=== PATIENT | female | born 1955 | race Caucasian/White ===

== ENCOUNTER 2017-02-12 22:16 | Emergency (ER) | payer MEDICARE, OTHER ==
[~2017-02-12] VITALS: Ht 162.6 cm; Wt 105.5 kg
[2017-02-12 22:16] VITALS: Ht 162.6 cm; Wt 105.5 kg
--- OUTSIDE RECORDS SUMMARY | 2017-02-12 22:19 | XMS REPORT | Referral Summary ---
Author Author [facility] Organization [facility] Address Unknown Phone Unavailable Care Team Providers Care Utility Clerk Name Role Phone Dian Cardenas Primary Care Physician [phone] Encounter [facility] [id number] Date(s): 12/21/15 - 12/21/15 [facility]ON[facility] Whittaker E [address] [address]- Discharge Diagnosis: Diabetes Discharge Diagnosis: Left knee pain Discharge Diagnosis: Cough Discharge Disposition: 01-Home or Self Care Attending Physician: Wong Cardenas MD Admitting Physician: Wong Cardenas MD Vital Signs Most recent to 1 oldest [Reference Range]: Peripheral Pulse 98 bpm Rate [60-100 bpm] (12/21/15 10:02 AM) Blood Pressure 140/62 mmHg [90-140/60-90 mmHg] (12/21/15 10:02 AM) SpO2 93 % (12/21/15 10:02 AM) Problem List Condition Effective Dates Status Health Status Informant Alcohol abuse Active (disorder)(Confirmed ) Asthma without Active status asthmaticus (disorder)(Confirmed ) Cellulitis and Active abscess of toe(Confirmed) Depressive Active disorder(Confirmed) Fibromyalgia(Confirm Active ed) Ingrown Active toenail(Confirmed) Nondependent tobacco Active use disorder(Confirmed) Obesity(Confirmed) Active patient dermatophytosis of Active nail(Confirmed) Pain in Active limb(Confirmed) Restless legs Active syndrome(Confirmed) Allergies, Adverse Reactions, Alerts Substance Reaction Severity Status amoxicillin Hives Active amoxicillin-clavulanate Hives Active bacitracin Active penicillin Rash Active polymyxin B sulfate Active Medications Abilify 5 mg oral tablet 1 tabs, Oral, Daily, 0 Refill(s) Start Date: 04/18/14 Status: Ordered Advair Diskus 250 mcg-50 mcg inhalation powder See Instructions, 1 INHALATION Q 12 HOURS, # 60 Each, 5 Refill(s), Pharmacy: [facility] [id number] Start Date: 12/01/15 Status: Ordered albuterol CFC free 90 mcg/inh inhalation aerosol 2 puffs, Inhalation, q4hr, # 1 Each, 0 Refill(s), other reason (Rx) Start Date: 06/15/15 Status: Ordered Bactrim DS 800 mg-160 mg oral tablet 1 tabs, Oral, BID, X 10 days, # 20 tabs, 0 Refill(s), Pharmacy: [facility] [id number] Start Date: 12/21/15 Stop Date: 12/31/15 Status: Ordered Bactroban 2% topical ointment rudy, Topical, BID, 0 Refill(s) Start Date: 04/18/14 Status: Ordered bd pen ndl shrt 31 G X 8mm (03/11) bharati bd pen ndl shrt 31 G X 8mm (03/11) bharati, See Instructions, SubCutaneous QID, # 100 Each, 3 Refill(s), Pharmacy: [facility] [id number], SubCutaneous QID Start Date: 07/07/14 Status: Ordered clonazePAM 0.5 mg oral tablet 0.5 tabs, 2 tabs, Oral, Bedtime (once a day), 0 Refill(s) Start Date: 04/18/14 Status: Ordered Cymbalta 60 mg oral delayed release capsule 2 caps, Oral, Bedtime (once a day), do not crush or chew, # 30 caps, 0 Refill(s) Start Date: 04/18/14 Status: Ordered fluticasone 50 mcg/inh nasal spray See Instructions, INHALE 1 - 2 SPRAY BY INTRANASAL ROUTE EVERY DAY IN EACH NOSTRIL, # 3 Each, 5 Refill(s), Pharmacy: [facility] [id number] Start Date: 11/06/15 Status: Ordered FreeStyle Lancets See Instructions, USE 1 BY SUBCUTANEOUS ROUTE 3 TIMES EVERY, # 300 unknown unit , 11 Refill(s), eRx: [facility] [id number], USE 1 BY SUBCUTANEOUS ROUTE 3 TIMES EVERY Start Date: 01/16/15 Status: Ordered FreeStyle Lite Strips See Instructions, INJECT 1 BY INTRADERMAL ROUTE 3 TIMES EVERY DAY, # 300 unknown unit, 11 Refill(s), eRx: [facility] , INJECT 1 BY INTRADERMAL ROUTE 3 TIMES EVERY DAY Start Date: 04/24/15 Status: Ordered FreeStyle Lite Strips See Instructions, INJECT 1 BY INTRADERMAL ROUTE 3 TIMES EVERY DAY, # 300 unknown unit, 11 Refill(s), eRx: [facility] , INJECT 1 BY INTRADERMAL ROUTE 3 TIMES EVERY DAY Start Date: 01/16/15 Status: Ordered Lantus Solostar Pen 100 units/mL subcutaneous solution See Instructions, INJECT 30 UNITS BY SUBCUTANEOUS ROUTE AT BEDTIME, # 15 unknown unit, 10 Refill(s), eRx: [facility] , INJECT 30 UNITS BY SUBCUTANEOUS ROUTE AT BEDTIME Start Date: 05/25/15 Status: Ordered Miscellaneous DME DME Item b-d jorge luis pen needles dx 250.00, See Instructions, # 100 Each, 12 Refill(s), Pharmacy: [facility] [id number], b-d jorge luis pen needles; dx 250.00 , Supply Start Date: 05/18/15 Status: Ordered Mobic 15 mg oral tablet See Instructions, TAKE 1 TABLET (15MG) BY ORAL ROUTE BID, # 60 unknown unit, 11 Refill(s), eRx: [facility] , TAKE 1 TABLET (15MG) BY ORAL ROUTE BID Start Date: 01/12/15 Status: Ordered [place] 7.5 mg-325 mg oral tablet See Instructions, 1-2 tabs Oral q4hr, # 70 tabs, 0 Refill(s), Indication: prn pain Start Date: 12/01/15 Status: Ordered NovoLOG FlexPen 100 units/mL subcutaneous solution See Instructions, TAKE 25 U ; BEFORE BREAKFAST, 12-15 U ; BEFORE LUNCH, AND 20 U ; BEFORE DINNER, # 15 mL, 9 Refill(s), Pharmacy: [facility] [id number], TAKE 25 U ; BEFORE BREAKFAST, 12-15 U ; BEFORE LUNCH, AND 20 U ; BEFORE DINNER Start Date: 11/30/15 Status: Ordered ProAir HFA 90 mcg/inh inhalation aerosol See Instructions, INHALE 2 PUFF(S) BY MOUTH ROUTE 4 TIMES EVERY DAY AND NEEDED, # 8.5 Each, 2 Refill(s), Pharmacy: [facility] [id number] Start Date: 08/24/15 Status: Ordered promethazine-codeine 6.25 mg-10 mg/5 mL oral syrup See Instructions, 1 Teaspoon Oral in evening as needed for cough, # 120 mL, 0 Refill(s), called to pharmacy (Rx) Start Date: 08/25/15 Status: Ordered tiZANidine 4 mg oral tablet 1 tabs, Oral, TID, 0 Refill(s) Start Date: 04/18/14 Status: Ordered traMADol 50 mg oral tablet 50 mg 1 tabs, Oral, QID, prn pain, # 100 tabs, 2 Refill(s), called to pharmacy ( Rx) Start Date: 10/02/15 Status: Ordered zaleplon 10 mg oral capsule 1 caps, Oral, Bedtime (once a day), as needed for sleep, 0 Refill(s) Start Date: 04/18/14 Status: Ordered Zocor 20 mg oral tablet See Instructions, TAKE 1 TABLET (20MG) BY ORAL ROUTE EVERY DAY IN THE EVENING, # 30 Each, 6 Refill(s), Pharmacy: [facility] [id number], TAKE 1 TABLET ( 20MG) BY ORAL ROUTE EVERY DAY IN THE EVENING Start Date: 11/29/15 Status: Ordered Results Chemistry Most recent to 1 oldest [Reference Range]: Sodium Lvl [135-144 139 mEq/L mEq/L] (12/21/15 10:40 AM) Potassium Lvl 4.3 mEq/L [3.5-5.2 mEq/L] (12/21/15 10:40 AM) Chloride [99-111 104 mEq/L mEq/L] (12/21/15 10:40 AM) CO2 [22-31 mEq/L] 30 mEq/L (12/21/15 10:40 AM) AGAP [3-20] 5 (12/21/15 10:40 AM) BUN [10-20 mg/dL] 15 mg/dL (12/21/15 10:40 AM) Glucose Lvl [70-99 236 mg/dL mg/dL] *HI* (12/21/15 10:40 AM) Creatinine Lvl 0.72 mg/dL [0.57-1.11 mg/dL] (12/21/15 10:40 AM) eGFR [>60 mL/min] >60 mL/min 1 (12/21/15 10:40 AM) Calcium Lvl 9.3 mg/dL [8.9-10.5 mg/dL] (12/21/15 10:40 AM) Albumin Lvl [3.4-4.8 4.0 gm/dL gm/dL] (12/21/15 10:40 AM) Total Protein 6.0 gm/dL [6.2-8.1 gm/dL] *LOW* (12/21/15 10:40 AM) Globulin [1.8-4.0 2.0 gm/dL gm/dL] (12/21/15 10:40 AM) ALT [0-55 U/L] 12 U/L (12/21/15 10:40 AM) AST [5-34 U/L] 11 U/L (12/21/15 10:40 AM) Alk Phos [40-150 47 U/L U/L] (12/21/15 10:40 AM) Bili Total [0.2-1.2 0.3 mg/dL mg/dL] (12/21/15 10:40 AM) Hgb A1c [4.1-5.6 %] 6.1 % *HI* (12/21/15 10:40 AM) eAvg Glucose 128.4 mg/dL (12/21/15 10:40 AM) 1Result Comment: Multiply eGFR results by 1.21 for race. Urinalysis Most recent to 1 oldest [Reference Range]: UA Color Yellow (12/21/15 10:40 AM) UA Appear Clear (12/21/15 10:40 AM) UA pH [5.0-8.0] 6.5 (12/21/15 10:40 AM) UA Leuk Est Pos 1+ [Negative] *ABN* (12/21/15 10:40 AM) UA Nitrite Negative [Negative] (12/21/15 10:40 AM) UA Protein Negative [Negative] (12/21/15 10:40 AM) UA Glucose Pos 2+ [Negative] *ABN* (12/21/15 10:40 AM) UA Ketones Negative [Negative] (12/21/15 10:40 AM) UA Urobilinogen 0.2 mg/dL [<1.0 mg/dL] (12/21/15 10:40 AM) UA Bili [Negative] Negative (12/21/15 10:40 AM) UA Blood [Negative] Negative (12/21/15 10:40 AM) UA Spec Grav 1.020 [1.003-1.030] (12/21/15 10:40 AM) Type Clean Catch (12/21/15 10:40 AM) UA WBC [0-4] 2-4 (12/21/15 10:40 AM) UA RBC [0-4] 0-4 (12/21/15 10:40 AM) Epithelial Cells 2-5 (12/21/15 10:40 AM) Immunizations Vaccine Date Refusal Reason tetanus/diphth/pertuss (Tdap) adult/adol 01/12/97 influenza virus vaccine, live 09/06/08 Procedures Procedure Date Related Diagnosis Body Site section Tonsillectomy Social History Social History Type Response Smoking Status Current some day smoker; Type: Cigarettes; Tobacco use per day: More than 1 pack; Number of years: 20 Assessment and Plan Extracted from: Title: Ambulatory Patient Education Author: Wong Cardenas MD Date: Allergy Cough, Adult A cough is a reflex. It helps you clear your throat and airways. A cough can help heal your body. A cough can last 2 or 3 weeks (acute) or may last more than 8 weeks (chronic). Some common causes of a cough can include an infection, allergy, or a cold. HOME CARE Only take medicine as told by your doctor. If given, take your medicines (antibiotics) as told. Finish them even if you start to feel better. Use a cold steam vaporizer or humidifier in your home. This can help loosen thick spit (secretions). Sleep so you are almost sitting up (semi-upright). Use pillows to do this. This helps reduce coughing. Rest as needed. Stop smoking if you smoke. GET HELP RIGHT AWAY IF: You have yellowish-white fluid (pus) in your thick spit. Your cough gets worse. Your medicine does not reduce coughing, and you are losing sleep. You cough up blood. You have trouble breathing. Your pain gets worse and medicine does not help. You have a fever. MAKE SURE YOU: Understand these instructions. Will watch your condition. Will get help right away if you are not doing well or get worse. This information is not intended to replace advice given to you by your health care provider. Make sure you discuss any questions you have with your health care provider. Document Released: 06/25/2012 Document Revised: 02/27/2015 Document Reviewed: [facility] Patient Information 2015 [employer]. Family Medicine Knee Pain Knee pain is a common problem. It can have many causes. The pain often goes away by following your doctor's home care instructions. Treatment for ongoing pain will depend on the cause of your pain. If your knee pain continues, more tests may be needed to diagnose your condition. Tests may include X-rays or other imaging studies of your knee. HOME CARE Take medicines only as told by your doctor. Rest your knee and keep it raised (elevated) while you are resting. Do not do things that cause pain or make your pain worse. Avoid activities where both feet leave the ground at the same time, such as running, jumping rope, or doing jumping jacks. Apply ice to the knee area: Put ice in a plastic bag. Place a towel between your skin and the bag. Leave the ice on for 20 minutes, 23 times a day. Ask your doctor if you should wear an elastic knee support. Sleep with a pillow under your knee. Lose weight if you are overweight. Being overweight can make your knee hurt more. Do not use any tobacco products, including cigarettes, chewing tobacco, or electronic cigarettes. If you need help quitting, ask your doctor. Smoking may slow the healing of any bone and joint problems that you may have. GET HELP IF: Your knee pain does not stop, it changes, or it gets worse. You have a fever along with knee pain. Your knee gives out or locks up. Your knee becomes more swollen. GET HELP RIGHT AWAY IF: Your knee feels hot to the touch. You have chest pain or trouble breathing. This information is not intended to replace advice given to you by your health care provider. Make sure you discuss any questions you have with your health care provider. Document Released: 01/09/2010 Document Revised: 08/01/2015 Document Reviewed: [facility] Patient Information 2015 [employer]. No follow up information was provided. Extracted from: Title: Office Visit Note Author: Wong Cardenas MD Date: 12/21/15 Assessment/Plan 1.Left knee pain left MCL sprain will rest and use walker may need brace infuture Ordered: XR Knee 1 or 2 Views Left 2.Cough we will treat with Bactrim DS she will follow up if symptoms persists Ordered: XR Chest 2 Views 3.Diabetes will check status Ordered: Albumin Level Urine Comprehensive Metabolic Panel Hemoglobin A1c Urinalysis Microscopic Urine Dipstick Orders: sulfamethoxazole-trimethoprim, 1 tabs, Oral, BID, X 10 days, # 20 tabs , 0 Refill(s), Pharmacy: [facility] [id number]
--- OUTSIDE RECORDS SUMMARY | 2017-02-12 22:20 | XMS REPORT | Continuity of Care Document ---
Author Author Obdulio Diane DPM, VC Ambulatory Address [address] [place] [address] Phone Care Team Providers Care Stone Paver Name Role Phone Wong Cardenas PP Unavailable Payers Payer name Insurance type Covered green party ID Authorization(s) Unknown Problems Condition Effective Dates (start - stop) Clinical Status Dermatophytosis of nail - *Chronic Pain in limb - *Chronic Unspecified cellulitis and abscess of toe - *Chronic Dermatophytosis of nail - *Chronic Pain in joint involving ankle and foot - *Acute Bronchitis, not specified as acute or chronic - *Acute ACUTE BRONCHOSPASM - *Acute Unspecified cellulitis and abscess of toe - *Acute Ulcer of other part of foot - *Chronic Other hammer toe (acquired) - *Chronic Diabetes Mellitus Type 2, Uncomplicated - *Fair Control Ingrowing nail - *Acute Otalgia, unspecified - *Acute Lumbago - *Acute Radiculitis, Thoracic or Lumbar - *Acute Earache symptoms - *Chronic Lumbago - *Acute Unspecified local infection of skin and subcutaneous tissue - * Acute Ulcer of other part of foot - *Chronic Diabetes Mellitus Type 2, Uncomplicated - *Fair Control Dermatophytosis of nail - *Chronic Pain in limb - *Chronic Dermatophytosis of nail - *Chronic Pain in limb - *Chronic Mouth sores - *Acute Other and unspecified diseases of the oral soft tissues - *Acute Dermatophytosis of nail - *Chronic Pain in limb - *Chronic Ulcer of other part of foot - *Chronic Other hammer toe (acquired) - *Chronic Diabetes Mellitus Type 2, Uncomplicated - *Fair Control Diabetes mellitus without mention of complication, type II or unspecified type , not stated as uncontrolled - *Chronic Diabetes Mellitus Type 2, Uncomplicated - *Chronic Cervicalgia - *Acute Pain in thoracic spine - *Acute Pain in joint involving pelvic region and thigh - *Acute Depressive disorder, not elsewhere classified - *Chronic Nondependent alcohol abuse, unspecified drinking behavior - * Chronic Nondependent tobacco use disorder - *Chronic ASTHMA,UNSPECIFIED TYPE, UNSPECIFIED - *Chronic Pain in limb - *Chronic Bronchitis, Acute - *Acute ACUTE BRONCHOSPASM - *Acute Dermatophytosis of nail - *Chronic Pain in limb - *Chronic Diabetes mellitus without mention of complication, type II or unspecified type , not stated as uncontrolled - *Chronic Dermatophytosis of nail - *Chronic Pain in limb - *Chronic Diabetes Mellitus Type 2, Uncomplicated - *Fair Control DERMATOPHYTOSIS OF NAIL - CELLULITIS, TOE NOS - INGROWING NAIL - PAIN IN LIMB - Diabetes mellitus without mention of complication, type I [juvenile type], not stated as uncontrolled - *Chronic Diabetes mellitus without mention of complication, type I [juvenile type], not stated as uncontrolled - *Chronic Ingrowing nail - *Chronic Ulcer of other part of foot - *Acute Other hammer toe (acquired) - *Chronic Lumbago - *Acute Pain in joint involving multiple sites - *Acute Upper Respiratory Infection, Acute - *Acute Chilblains - *Acute Diabetes mellitus without mention of complication, type I [juvenile type], not stated as uncontrolled - *Chronic Diabetes mellitus without mention of complication, type II or unspecified type - *Chronic Diabetes mellitus without mention of complication, type II or unspecified type - *Chronic Diabetes mellitus without mention of complication, type II or unspecified type - *Chronic Diabetes mellitus without mention of complication, type II or unspecified type - *Chronic Abnormal weight gain - *Acute Diabetes mellitus without mention of complication, type II or unspecified type , not stated as uncontrolled - *Chronic Screening for malignant neoplasms of the cervix - *Routine Dermatophytosis of nail - *Chronic Pain in limb - *Chronic Diabetes Mellitus Type 2, Uncomplicated - *Fair Control Diabetes mellitus without mention of complication, type II or unspecified type , not stated as uncontrolled - *Chronic Bronchitis, Acute - *Acute Diabetes Mellitus Type 2, Uncomplicated - *Chronic Diabetes mellitus without mention of complication, type II or unspecified type , uncontrolled - *Chronic Lumbago - *Acute Pain in joint involving forearm - *Acute Oral aphthae - *Acute Obesity, unspecified - *Acute Family History Family Member Diagnosis Age At Onset Status Family h/o (Unknown) Diabetes Yes Social History Social History Element Description Quantity alcohol Allergies, Adverse Reactions, Alerts Substance Reaction Severity Status PENICILLINS Rash Unknown BACITRACIN Unknown BACITRACIN ZINC Unknown GRAMICIDIN D Unknown NEOMYCIN SULFATE Unknown POLYMYXIN B Unknown POLYMYXIN B SULFATE Unknown AMOXICILLIN TRIHYDRATE Hives Unknown POTASSIUM CLAVULANATE Hives Unknown Medications Medication Instructions Dosage Effective Dates (start - stop) Status minocycline 100 mg capsule take 1 capsule (100MG) by oral route every day as needed 100 MG - Active Cymbalta 60 mg capsule,delayed release take 2 capsule (120MG) by ORAL route every bedtime 120 MG - Active Abilify 5 mg tablet take 1 tablet (5MG) by ORAL route every day 5 MG - Active trazodone 100 mg tablet take 3 tablet (300MG) by ORAL route every bedtime after meals. 300 MG - Active zaleplon 10 mg capsule take 1 capsule (10MG) by oral route every day at bedtime as needed - Active Lantus Solostar 100 unit/mL (3 mL) subcutaneous insulin pen inject by subcutaneous route as per insulin protocol 0 - Active use with insulin pen 4 times daily - Active clonazepam 0.5 mg tablet take 2 Tablet (1MG) by oral route every bedtime 1 MG - Active fluticasone 50 mcg/actuation nasal spray,suspension inhale 1 - 2 spray by Intranasal route every day in each nostril - Active ProAir HFA 90 mcg/actuation aerosol inhaler inhale 2 Puff(s) by mouth route 4 times every day and as needed 0 - Active Mobic 15 mg tablet take 1 tablet (15MG) by ORAL route BID - Active tizanidine 4 mg tablet take 1 tablet (4MG) by oral route 3 times every day 4 MG - Active Bactroban 2 % topical cream apply a small amount to the affected area BID - Active Zocor 20 mg tablet take 1 tablet (20MG) by ORAL route every day in the evening - Active Novolog Flexpen 100 unit/mL subcutaneous inject by subcutaneous route as per insulin sliding scale protocol 0 - Active FreeStyle Lancets 28 gauge Use 1 by Subcutaneous route 3 times every - Active FreeStyle Lite Strips use 1 TID as directed - Active promethazine-codeine 6.25 mg-10 mg/5 mL syrup take 1 Teaspoon at hs prn cough - Active Advair Diskus 250 mcg-50 mcg/dose powder for inhalation 1 INHALATION q 12 hours - Active [place] 7.5 mg-325 mg tablet take 1 - 2 Tablet by oral route every 4 hours as needed for pain 0 - Active Immunizations Vaccine Date Status Comments flu (split) (3 yrs or older) completed - Completed reason: Previously given Tdap completed - Completed reason: Previously Given Results Test Name Date and Time Measure Units Reference Range Abnormal Flag Comments Unknown Vital Signs Date / Time: Height Weight Pulse Rate Blood Pressure Temperature Unknown Procedures Procedure Date Unknown Encounters Encounter Location Date Patient Visit [facility] [place] Patient [place] [facility] [place] Patient Visit [facility] [place] [facility] [place] [facility] [place] [facility] [place] [facility] [place] Patient [facility] [place] [facility] [place] [facility] [place] [facility] [place] [facility] [place] [facility] [place] [facility] [place] [facility] [place] [facility] [place] [facility] [place] [facility] [place] [facility] [place] Patient Visit [facility] [place] Patient [facility] [place] [facility] [place] [facility] [place] [facility] [place] Patient Visit [facility] [place] Patient [facility] [place] Patient [facility] [place] [facility] [place] Patient [facility] [place] [facility] [place] [facility] [place] [facility] [place] [facility] [place] [facility] [place] Patient [facility] [place] [facility] [place] Patient Visit [place] Patient [facility] [place] [facility] [place] [facility] [place] Patient [facility] [place] [facility] [place] [facility] [place] [facility] [place] [facility] [place] [facility] [place] [facility] [place] Patient [facility] [place] [facility] [place] [facility] [place] [facility] [place] [facility] [place] [facility] [place] [facility] [place] Patient Visit [facility] [place] Patient Visit [facility] [place] Advance Directives Directive Effective [facility] Unknown
--- OUTSIDE RECORDS SUMMARY | 2017-02-12 22:20 | XMS REPORT | Referral Summary ---
Author Author [facility] Organization [facility] Address Unknown Phone Unavailable Care Team Providers Care Veneer Drier Tailer Name Role Phone Dian Cardenas Primary Care Physician [phone] Encounter VC Date(s): 06/19/16 - 06/19/16 [facility] [address] [place] [id number] Discharge Disposition: 01-Home or Self Care Attending Physician: Wong Cardenas MD Admitting Physician: Wong Cardenas MD Vital Signs Most recent to 1 oldest [Reference Range]: Peripheral Pulse 90 bpm Rate [60-100 bpm] (06/19/16 4:33 PM) Blood Pressure 138/70 mmHg [90-140/60-90 mmHg] (06/19/16 4:33 PM) SpO2 91 % (06/19/16 4:33 PM) Problem List Condition Effective Dates Status Health Status Informant Alcohol abuse Active (disorder)(Confirmed ) Asthma without Active status asthmaticus (disorder)(Confirmed ) Cellulitis and Active abscess of toe(Confirmed) Chronic low back Active pain(Confirmed) Depressive Active disorder(Confirmed) Fibromyalgia(Confirm Active ed) Ingrown [...] HOURS, # 60 Each, 5 Refill(s), Pharmacy: [facility] [id number] Start Date: 12/01/15 Status: Ordered albuterol 0.63 mg/3 mL (0.021%) inhalation solution 0.63 mg 3 mL, NEB, TID, j 18.9, # 270 mL, 11 Refill(s), Pharmacy: [facility] [id number] Start Date: 01/19/16 Status: Ordered Bactroban 2% topical ointment rudy, Topical, BID, 0 Refill(s) Start Date: 04/18/14 Status: Ordered clonazePAM 0.5 mg oral tablet 0.5 tabs, 2 tabs, Oral, Bedtime (once a day), 0 Refill(s) Start Date: 04/18/14 Status: Ordered clotrimazole-betamethasone 1%-0.05% topical cream See Instructions, APPLY TOPICALLY TO AFFECTED SKIN TWICE DAILY, # 45 g, eRx: [facility] [id number], APPLY TOPICALLY TO AFFECTED SKIN TWICE DAILY Start Date: 06/03/16 Status: Ordered Cymbalta 60 mg oral delayed release capsule 2 caps, Oral, Bedtime (once a day), do not crush or chew, # 30 caps, 0 Refill(s) Start Date: 04/18/14 Status: Ordered fluticasone 50 mcg/inh nasal spray See Instructions, INHALE 1 - 2 SPRAY BY INTRANASAL ROUTE EVERY DAY IN EACH NOSTRIL, # 3 Each, 5 Refill(s), Pharmacy: [facility] [id number] Start Date: 11/06/15 Status: Ordered FREESTYLE LANCETS 100'S See Instructions, TEST BLOOD SUGARS THREE TIMES DAILY, # 300 unknown unit, eRx: [facility] [id number], TEST BLOOD SUGARS THREE TIMES DAILY Start Date: 04/24/16 Status: Ordered Glucometer Lancets (DME) DME Item freestyle lancets test tid, See Instructions, # 300 Each, 0 Refill(s), Pharmacy: [facility] [id number], freestyle lancets test tid, Supply Start Date: 01/24/16 Status: Ordered Lantus Solostar Pen 100 units/mL subcutaneous solution See Instructions, INJECT 30 UNITS BY SUBCUTANEOUS ROUTE AT BEDTIME, # 15 unknown unit, 10 Refill(s), eRx: [facility] [id number], INJECT 30 UNITS BY SUBCUTANEOUS ROUTE AT BEDTIME Start Date: 05/25/15 Status: Ordered Levaquin 500 mg oral tablet 500 mg 1 tabs, Oral, q24hr, X 10 days, # 10 tabs, 0 Refill(s), Pharmacy: [facility] [id number], 1 tabs Oral q24hr,x10 days Start Date: 06/19/16 Stop Date: 06/29/16 Status: Ordered Miscellaneous DME DME Item b-d jorge luis pen needles dx 250.00, See Instructions, # 100 Each, 12 Refill(s), Pharmacy: [facility] [id number], b-d jorge luis pen needles; dx 250.00 , Supply Start Date: 05/18/15 Status: Ordered Mobic 15 mg oral tablet See Instructions, TAKE 1 TABLET (15MG) BY ORAL ROUTE BID, # 60 tabs, 5 Refill(s) , Pharmacy: [facility] [id number], TAKE 1 TABLET (15MG) BY ORAL ROUTE BID Start Date: 01/18/16 Status: Ordered [place] 7.5 mg-325 mg oral tablet 1 tabs, Oral, QID, as needed for pain, # 120 tabs, 0 Refill(s), Indication: prn pain Start Date: 06/19/16 Status: Ordered NovoLOG FlexPen 100 units/mL subcutaneous solution See Instructions, TAKE 25 U ; BEFORE BREAKFAST, 12-15 U ; BEFORE LUNCH, AND 20 U ; BEFORE DINNER, # 15 mL, 9 Refill(s), Pharmacy: [facility] [id number], TAKE 25 U ; BEFORE BREAKFAST, 12-15 U ; BEFORE LUNCH, AND 20 U ; BEFORE DINNER Start Date: 11/30/15 Status: Ordered ProAir HFA 90 mcg/inh inhalation aerosol See Instructions, INHALE 2 PUFF(S) BY MOUTH ROUTE 4 TIMES EVERY DAY AND NEEDED, # 8.5 Each, 2 Refill(s), Pharmacy: [facility] [id number] Start Date: 08/24/15 Status: Ordered Spiriva 18 mcg inhalation capsule 18 mcg 1 caps, Inhalation, Daily, # 30 Each, 3 Refill(s), Pharmacy: [facility] [id number], 1 caps Inhalation Daily Start Date: 04/11/16 Status: Ordered testing strips testing strips, See Instructions, Freestyle insulin X testing strips testing three times a day Dx E 11.9, # 100 Each, 11 Refill(s), Pharmacy: [facility] [address], Freestyle insulin X testing strips testing three times a day ; Dx E 11.9 Start Date: 04/16/16 Status: Ordered traMADol 50 mg oral tablet 50 mg 1 tabs, Oral, TID, prn pain, # 90 tabs, 0 Refill(s) Start Date: 05/27/16 Status: Ordered Zocor 20 mg oral tablet See Instructions, TAKE 1 TABLET (20MG) BY ORAL ROUTE EVERY DAY IN THE EVENING, # 30 Each, 6 Refill(s), Pharmacy: [facility] [id number], TAKE 1 TABLET ( 20MG) BY ORAL ROUTE EVERY DAY IN THE EVENING Start Date: 11/29/15 Status: Ordered Results No data available for this section Immunizations Vaccine Date Refusal Reason tetanus/diphth/pertuss (Tdap) adult/adol 01/12/97 influenza virus vaccine, live 09/06/08 Procedures Procedure Date Related Diagnosis Body Site section Tonsillectomy Social History Social History Type Response Smoking Status Current every day smoker; Type: Cigarettes; Tobacco use per day: 1 pack or more Assessment and Plan Extracted from: Title: Ambulatory Patient Education Author: Sravani Tellez Date: 06/19/16 Family Medicine Arthritis, Nonspecific Arthritis is pain, redness, warmth, or puffiness (inflammation) of a joint. The joint may be stiff or hurt when you move it. One or more joints may be affected. There are many types of arthritis. Your doctor may not know what type you have right away. The most common cause of arthritis is wear and tear on the joint (osteoarthritis). HOME CARE Only take medicine as told by your doctor. Rest the joint as much as possible. Raise (elevate) your joint if it is puffy. Use crutches if the painful joint is in your leg. Drink enough fluids to keep your pee (urine) clear or pale yellow. Follow your doctor's diet instructions. Use cold packs for very bad joint pain for 10 to 15 minutes every hour. Ask your doctor if it is okay for you to use hot packs. Exercise as told by your doctor. Take a warm shower if you have stiffness in the morning. Move your sore joints throughout the day. GET HELP RIGHT AWAY IF: You have a fever. You have very bad joint pain, puffiness, or redness. You have many joints that are painful and puffy. You are not getting better with treatment. You have very bad back pain or leg weakness. You cannot control when you poop (bowel movement) or pee (urinate). You do not feel better in 24 hours or are getting worse. You are having side effects from your medicine. MAKE SURE YOU: Understand these instructions. Will watch your condition. Will get help right away if you are not doing well or get worse. This information is not intended to replace advice given to you by your health care provider. Make sure you discuss any questions you have with your health care provider. Document Released: 01/07/2011 Document Revised: 04/13/2013 Document Reviewed: [facility] Patient Information 2016 [employer]. No follow up information was provided. Extracted from: Title: COPD * Author: Wong Cardenas MD Date: 06/19/16 Impression and Plan Diagnosis Chronic obstructive pulmonary disease (COPD) (PKF42-JA J44.9, Working, Medical). Chronic low back pain (AFL76-QI M54.5, Working, Medical). Shoulder pain, bilateral (MGW22-EC M25.511, Working, Medical). Patient Instructions: Arthritis, Nonspecific, Phri-em-Rcfd. Summary: Will cover pt's lungs with Levaquin 500 mg. q d X10 days. Will increase [place] 7.5/325 mg. script to #120, she may take 1 QID prn pain.. Orders Orders (Selected) Outpatient Orders Ordered Office Visit Level 3 Est 30616: Prescriptions Prescribed Levaquin 500 mg oral tablet: 500 mg=1 tabs, Oral, q24hr, for 10 days, 10 tabs, 0 Refill(s) [place] 7.5 mg-325 mg oral tablet: 1 tabs, Oral, QID, PRN: as needed for pain, 120 tabs, 0 Refill(s).
--- OUTSIDE RECORDS SUMMARY | 2017-02-12 22:20 | XMS REPORT | Referral Summary ---
Author Author [facility] Organization [facility] Address Unknown Phone Unavailable Care Team Providers Care Staff Accountant Name Role Phone Dian Cardenas Primary Care Physician [phone] Encounter Date(s): 01/15/16 - 01/15/16 [facility] [address] [address]- Discharge Diagnosis: Pneumonia Discharge Diagnosis: Acute bronchitis with bronchospasm Discharge Disposition: 01-Home or Self Care Attending Physician: Wong Cardenas MD Admitting Physician: Wong Cardenas MD Vital Signs Most recent to 1 oldest [Reference Range]: Temperature Tympanic 37.2 degC [36.6-38.1 degC] (01/15/16 12:14 PM) Peripheral Pulse 88 bpm Rate [60-100 bpm] (01/15/16 12:14 PM) Blood Pressure 150/70 mmHg [90-140/60-90 mmHg] *HI* (01/15/16 12:14 PM) SpO2 90 % (01/15/16 12:14 PM) Problem List Condition Effective Dates Status [...] HOURS, # 60 Each, 5 Refill(s), Pharmacy: [facility] [id number] Start Date: 12/01/15 Status: Ordered albuterol 0.63 mg/3 mL (0.021%) inhalation solution 0.63 mg 3 mL, NEB, TID, # 270 mL, 11 Refill(s), Pharmacy: [facility] [id number] Start Date: 01/15/16 Status: Ordered albuterol CFC free 90 mcg/inh inhalation aerosol 2 puffs, Inhalation, q4hr, # 1 Each, 0 Refill(s), other reason (Rx) Start Date: 06/15/15 Status: Ordered Bactroban 2% topical ointment rudy, Topical, BID, 0 Refill(s) Start Date: 04/18/14 Status: Ordered bd pen ndl shrt 31 G X 8mm (03/11) bharati bd pen ndl shrt 31 G X 8mm (03/11) bharati, See Instructions, SubCutaneous QID, # 100 Each, 3 Refill(s), Pharmacy: [facility] [id number], SubCutaneous QID Start Date: 07/07/14 Status: Ordered Ceftin 500 mg oral tablet 500 mg 1 tabs, Oral, BID, # 20 tabs, 0 Refill(s) Start Date: 01/15/16 Stop Date: 01/25/16 Status: Ordered clonazePAM 0.5 mg oral tablet [...] NOSTRIL, # 3 Each, 5 Refill(s), Pharmacy: [facility] [id number] Start Date: 11/06/15 Status: Ordered FreeStyle Lancets See Instructions, USE 1 BY SUBCUTANEOUS ROUTE 3 TIMES EVERY, # 300 unknown unit , 11 Refill(s), eRx: [facility] , USE 1 BY SUBCUTANEOUS ROUTE 3 TIMES EVERY Start Date: 01/16/15 Status: Ordered FreeStyle Lite Strips See Instructions, INJECT 1 BY INTRADERMAL ROUTE 3 TIMES EVERY DAY, # 300 unknown unit, 11 Refill(s), eRx: [facility] , INJECT 1 BY INTRADERMAL ROUTE 3 TIMES EVERY DAY Start Date: 04/24/15 Status: Ordered FreeStyle Lite Strips See Instructions, INJECT 1 BY INTRADERMAL ROUTE 3 TIMES EVERY DAY, # 300 unknown unit, 11 Refill(s), eRx: [facility] , INJECT 1 BY INTRADERMAL ROUTE 3 TIMES EVERY DAY Start Date: 01/16/15 Status: Ordered Lantus Solostar Pen 100 units/mL subcutaneous solution See Instructions, INJECT 30 UNITS BY SUBCUTANEOUS ROUTE AT BEDTIME, # 15 unknown unit, 10 Refill(s), eRx: [facility] , INJECT 30 UNITS BY SUBCUTANEOUS ROUTE AT BEDTIME Start Date: 05/25/15 Status: Ordered Miscellaneous DME DME Item b-d jorge luis pen needles dx 250.00, See Instructions, # 100 Each, 12 Refill(s), Pharmacy: [facility] [id number], b-d jorge luis pen needles; dx 250.00 , Supply Start Date: 05/18/15 Status: Ordered Mobic 15 mg oral tablet See Instructions, TAKE 1 TABLET (15MG) BY ORAL ROUTE BID, # 60 unknown unit, 11 Refill(s), eRx: [facility] , TAKE 1 TABLET (15MG) BY ORAL ROUTE BID Start Date: 01/12/15 Status: Ordered [place] 7.5 mg-325 mg oral tablet See Instructions, 1-2 tabs Oral q4hr, # 70 tabs, 0 Refill(s), Indication: prn pain Start Date: 12/26/15 Status: Ordered NovoLOG FlexPen 100 units/mL subcutaneous solution See Instructions, TAKE 25 U ; BEFORE BREAKFAST, 12-15 U ; BEFORE LUNCH, AND 20 U ; BEFORE DINNER, # 15 mL, 9 Refill(s), Pharmacy: [facility] [id number], TAKE 25 U ; BEFORE BREAKFAST, 12-15 U ; BEFORE LUNCH, AND 20 U ; BEFORE DINNER Start Date: 11/30/15 Status: Ordered predniSONE 50 mg oral tablet 50 mg 1 tabs, Oral, Daily, X 10 days, # 10 tabs, 0 Refill(s), [facility] [id number], 1 tabs Oral Daily,x10 days Start Date: 01/12/16 Stop Date: 01/22/16 Status: Ordered ProAir HFA 90 mcg/inh inhalation aerosol See Instructions, INHALE 2 PUFF(S) BY MOUTH ROUTE 4 TIMES EVERY DAY AND NEEDED, # 8.5 Each, 2 Refill(s), Pharmacy: [facility] [id number] Start Date: 08/24/15 Status: Ordered promethazine-codeine 6.25 [...] Oral, QID, prn pain, # 100 tabs, 0 Refill(s), called to pharmacy ( Rx) Start Date: 01/09/16 Status: Ordered zaleplon 10 mg oral capsule 1 caps, Oral, Bedtime (once a day), as needed for sleep, 0 Refill(s) Start Date: 04/18/14 Status: Ordered Zocor 20 mg oral tablet See Instructions, TAKE 1 TABLET (20MG) BY ORAL ROUTE EVERY DAY IN THE EVENING, # 30 Each, 6 Refill(s), Pharmacy: [facility] [id number], TAKE 1 TABLET ( 20MG) BY ORAL [...] Patient Education Author: Wong Cardenas MD Date: Family Medicine Pneumonia, Adult Pneumonia is an infection of the lungs. It may be caused by a germ (virus or bacteria). Some types of pneumonia can spread easily from person to person. This can happen when you cough or sneeze. HOME CARE Only take medicine as told by your doctor. Take your medicine (antibiotics) as told. Finish it even if you start to feel better. Do not smoke. You may use a vaporizer or humidifier in your room. This can help loosen thick spit (mucus). Sleep so you are almost sitting up (semi-upright). This helps reduce coughing. Rest. A shot (vaccine) can help prevent pneumonia. Shots are often advised for: People over 65 years old. Patients on chemotherapy. People with long-term (chronic) lung problems. People with immune system problems. GET HELP RIGHT AWAY IF: You are getting worse. You cannot control your cough, and you are losing sleep. You cough up blood. Your pain gets worse, even with medicine. You have a fever. Any of your problems are getting worse, not better. You have shortness of breath or chest pain. MAKE SURE YOU: Understand these instructions. Will watch your condition. Will get help right away if you are not doing well or get worse. This information is not intended to replace advice given to you by your health care provider. Make sure you discuss any questions you have with your health care provider. Document Released: 03/31/2009 Document Revised: 01/04/2013 Document Reviewed: [employer] Patient Information 2015 [employer]. No follow up information was provided.
--- OUTSIDE RECORDS SUMMARY | 2017-02-12 22:20 | XMS REPORT | Referral Summary ---
Author Author [facility] Organization [facility] Address Unknown Phone Unavailable Care Team Providers Care Quarter Supervisor Name Role Phone Dian Cardenas Primary Care Physician [phone] Encounter VC Date(s): 04/26/15 - 04/26/15 [facility] [address] [address]- [place] Discharge Diagnosis: Parotitis Discharge Diagnosis: Pain management Discharge Disposition: 01-Home or Self Care Attending Physician: Wong Cardenas MD Admitting Physician: Wong Cardenas MD Vital Signs Most recent to 1 oldest [Reference Range]: Temperature Tympanic 37.6 degC [36.6-38.1 degC] (04/26/15 8:48 AM) Peripheral Pulse 94 bpm Rate [60-100 bpm] (04/26/15 8:48 AM) Blood Pressure 114/70 mmHg [90-140/60-90 mmHg] (04/26/15 8:48 AM) SpO2 94 % (04/26/15 8:48 AM) Problem List Condition Effective Dates Status [...] 1 INHALATION Q 12 HOURS, # 60 unknown unit, 5 Refill(s), eRx: [facility] [id number], 1 INHALATION Q 12 HOURS Start Date: 04/24/15 Status: Ordered albuterol CFC free 90 mcg/inh [...] QID, # 100 Each, 3 Refill(s), Pharmacy: [facility] [id number], SubCutaneous QID Start Date: 07/07/14 Status: Ordered [...] ROUTE EVERY DAY IN EACH NOSTRIL, # 16 unknown unit, 5 Refill(s), eRx: [facility] [id number], INHALE 1 - 2 SPRAY BY INTRANASAL ROUTE EVERY DAY IN EACH NOSTRIL Start Date: 05/17/15 Status: Ordered FreeStyle Lancets See Instructions, USE 1 BY SUBCUTANEOUS ROUTE 3 TIMES EVERY, # 300 unknown unit , 11 Refill(s), eRx: [facility] [id number], USE 1 BY SUBCUTANEOUS ROUTE 3 TIMES EVERY Start Date: 01/16/15 Status: Ordered FreeStyle Lite Strips See Instructions, INJECT 1 BY INTRADERMAL ROUTE 3 TIMES EVERY DAY, # 300 unknown unit, 11 Refill(s), eRx: [facility] [id number], INJECT 1 BY INTRADERMAL ROUTE 3 TIMES EVERY DAY Start Date: 04/24/15 Status: Ordered FreeStyle Lite Strips See Instructions, INJECT 1 BY INTRADERMAL ROUTE 3 TIMES EVERY DAY, # 300 unknown unit, 11 Refill(s), eRx: [facility] [address], INJECT 1 BY INTRADERMAL ROUTE 3 TIMES EVERY DAY Start Date: 01/16/15 Status: Ordered Lantus Solostar Pen 100 units/mL subcutaneous solution See Instructions, INJECT 30 UNITS BY SUBCUTANEOUS ROUTE AT BEDTIME, # 15 unknown unit, 10 Refill(s), eRx: [facility] [address], INJECT 30 UNITS BY SUBCUTANEOUS ROUTE AT BEDTIME Start Date: 05/25/15 Status: Ordered Levaquin 500 mg oral tablet 500 mg 1 tabs, Oral, q24hr, X 10 days, # 10 tabs, 1 Refill(s), Pharmacy: [facility] [address], 1 tabs Oral q24hr,x10 days Start Date: 10/17/15 Stop Date: 11/06/15 Status: Ordered Miscellaneous DME DME Item b-d jorge luis pen needles dx 250.00, See Instructions, # 100 Each, 12 Refill(s), Pharmacy: [facility] [address], b-d jorge luis pen needles; dx 250.00 , Supply Start Date: 05/18/15 Status: Ordered Mobic 15 mg oral tablet See Instructions, TAKE 1 TABLET (15MG) BY ORAL ROUTE BID, # 60 unknown unit, 11 Refill(s), eRx: [facility] [id number], TAKE 1 TABLET (15MG) BY ORAL ROUTE BID Start Date: 01/12/15 Status: Ordered [place] 7.5 mg-325 mg oral tablet See Instructions, 1-2 tabs Oral q4hr, # 70 tabs, 0 Refill(s), Indication: prn pain Start Date: 10/24/15 Status: Ordered NovoLOG FlexPen 100 units/mL subcutaneous solution See Instructions, TAKE 25 U ; BEFORE BREAKFAST, 12-15 U ; BEFORE LUNCH, AND 20 U ; BEFORE DINNER, # 1 boxes, 9 Refill(s), eRx: [facility] [address], TAKE 25 U ; BEFORE BREAKFAST, 12-15 U ; BEFORE LUNCH, AND 20 U ; BEFORE DINNER Start Date: 03/15/15 Status: Ordered ProAir HFA 90 mcg/inh inhalation aerosol See Instructions, INHALE 2 PUFF(S) BY MOUTH ROUTE 4 TIMES EVERY DAY AND NEEDED, # 8.5 Each, 2 Refill(s), Pharmacy: [facility] [address] Start Date: 08/24/15 Status: Ordered promethazine-codeine 6.25 [...] ( Rx) Start Date: 10/02/15 Status: Ordered traZODone 100 mg oral tablet 1 tabs, Oral, TID, 0 Refill(s) Start Date: 04/18/14 Status: Ordered zaleplon 10 mg oral capsule 1 caps, Oral, Bedtime (once a day), as needed for sleep, 0 Refill(s) Start Date: 04/18/14 Status: Ordered Zocor 20 mg oral tablet See Instructions, TAKE 1 TABLET (20MG) BY ORAL ROUTE EVERY DAY IN THE EVENING, # 30 unknown unit, 6 Refill(s), eRx: [facility] [id number], TAKE 1 TABLET ( 20MG) BY ORAL ROUTE EVERY DAY IN THE EVENING Start Date: 06/12/15 Status: Ordered Zocor 20 mg oral tablet See Instructions, TAKE 1 TABLET (20MG) BY ORAL ROUTE EVERY DAY IN THE EVENING, # 30 unknown unit, eRx: [facility] [id number], TAKE 1 TABLET (20MG) BY ORAL ROUTE EVERY DAY IN THE EVENING Start Date: 05/12/15 Status: Ordered Results No data available for [...] 20 Assessment and Plan Extracted from: Title: Office Visit Note Author: Wong Cardenas MD Date: 04/26/15 Assessment/Plan 2.Pain management we gave her script for her pain medication Orders: doxycycline, 100 mg 1 caps, Oral, BID, X 10 days, # 20 caps, 0 Refill( s), Pharmacy: [facility] [address], 1 caps Oral BID,x10 days HYDROcodone-acetaminophen, See Instructions, 1-2 tabs Oral q4hr, # 70 tabs, 0 Refill(s) promethazine-codeine, See Instructions, 1 Teaspoon Oral in evening as needed for cough, # 120 mL, 0 Refill(s) 1 Parotitis explained that she could have a stone, viral or bacterial infection she will recheck if no better in a week
--- OUTSIDE RECORDS SUMMARY | 2017-02-12 22:20 | XMS REPORT | Referral Summary ---
Author Organization Unknown Address Unknown Phone Unavailable Care Team Providers Care Supervisor Lime Name Role Phone Dian Cardenas Primary Care Physician [phone] Encounter [facility] SERV[facility]O [id number] Date(s): 12/22/14 - 12/22/14 [facility], [facility] [address] [place], [place] [address] Discharge Diagnosis: Chronic pain Discharge Disposition: Home or Self Care Attending Physician: Amanda Bolden APRN Admitting Physician: Amanda Bolden APRN Vital Signs Most recent to 1 oldest [Reference Range]: Peripheral Pulse 101 bpm Rate [60-100 bpm] *HI* (12/22/14 10:48 AM) Blood Pressure 160/80 mmHg [90-140/60-90 mmHg] *HI* (12/22/14 10:48 AM) Most recent to 1 oldest [Reference Range]: SpO2 95 % (12/22/14 10:48 AM) Problem List Condition Effective Dates Status [...] Q 12 HOURS, # 60 unknown unit, 2 Refill(s), eRx: [id number], 1 INHALATION Q 12 HOURS Special Instructions: 1 INHALATION Q 12 HOURS Start Date: 08/15/14 Status: Ordered Bactroban 2% topical ointment rudy, Topical, BID, 0 Refill(s) Start Date: 04/18/14 Status: Ordered bd pen ndl shrt 31 G X 8mm (03/11) bharati bd pen ndl shrt 31 G X 8mm (03/11) bharati, See Instructions, SubCutaneous QID, # 100 Each, 3 Refill(s), Pharmacy: [id number], SubCutaneous QID Special Instructions: SubCutaneous QID Start Date: 07/07/14 Status: Ordered clonazePAM 0.5 mg oral tablet 0.5 tabs, 2 tabs, Oral, Bedtime (once a day), 0 Refill(s) Start Date: 04/18/14 Status: Ordered Cymbalta 60 mg oral delayed release capsule 2 caps, Oral, Bedtime (once a day), do not crush or chew, # 30 caps, 0 Refill(s) Special Instructions: do not crush or chew Start Date: 04/18/14 Status: Ordered fluticasone 50 mcg/inh nasal spray See Instructions, INHALE 1 - 2 SPRAY BY INTRANASAL ROUTE EVERY DAY IN EACH NOSTRIL, # 16 unknown unit, 2 Refill(s), eRx: [id number], INHALE 1 - 2 SPRAY BY INTRANASAL ROUTE EVERY DAY IN EACH NOSTRIL Special Instructions: INHALE 1 - 2 SPRAY BY INTRANASAL ROUTE EVERY DAY IN EACH NOSTRIL Start Date: 11/22/14 Status: Ordered Lantus Solostar Pen 100 units/mL subcutaneous solution See Instructions, INJECT 30 UNITS BY SUBCUTANEOUS ROUTE AT BEDTIME, # 15 unknown unit, 2 Refill(s), eRx: [id number], INJECT 30 UNITS BY SUBCUTANEOUS ROUTE AT BEDTIME Special Instructions: INJECT 30 UNITS BY SUBCUTANEOUS ROUTE AT BEDTIME Start Date: 12/08/14 Status: Ordered Levaquin 500 mg oral tablet 1 tabs, Oral, q24hr, X 10 days, # 10 tabs, 0 Refill(s), Pharmacy: [facility], 1 tabs Oral q24hr,x10 days Start Date: 12/15/14 Stop Date: 12/25/14 Status: Ordered Mobic 15 mg oral tablet See Instructions, TAKE 1 TABLET (15MG) BY ORAL ROUTE BID, # 60 unknown unit, 2 Refill(s), eRx: [id number], TAKE 1 TABLET (15MG) BY ORAL ROUTE BID Special Instructions: TAKE 1 TABLET (15MG) BY ORAL ROUTE BID Start Date: 10/13/14 Status: Ordered [place] 7.5 mg-325 mg oral tablet See Instructions, 1-2 tabs Oral q4hr, # 70 tabs, 0 Refill(s) Special Instructions: 1-2 tabs Oral q4hr Start Date: 12/22/14 Status: Ordered NovoLOG FlexPen 100 units/mL subcutaneous solution See Instructions, INJECT BY SUBCUTANEOUS ROUTE PER INSULIN SLIDING SCALE PROTOCOL, # 30 unknown unit, 2 Refill(s), eRx: [id number], INJECT BY SUBCUTANEOUS ROUTE PER INSULIN SLIDING SCALE PROTOCOL Special Instructions: INJECT BY SUBCUTANEOUS ROUTE PER INSULIN SLIDING SCALE PROTOCOL Start Date: 08/31/14 Status: Ordered ProAir HFA 90 mcg/inh inhalation aerosol See Instructions, INHALE 2 PUFF(S) BY MOUTH ROUTE 4 TIMES EVERY DAY AND NEEDED, # 8.5 unknown unit, 2 Refill(s), eRx: [id number], INHALE 2 PUFF(S) BY MOUTH ROUTE 4 TIMES EVERY DAY AND NEEDED Special Instructions: INHALE 2 PUFF(S) BY MOUTH ROUTE 4 TIMES EVERY DAY AND NEEDED Start Date: 10/21/14 Status: Ordered promethazine-codeine 6.25 mg-10 mg/5 mL oral syrup See Instructions, 1 Teaspoon Oral in evening as needed for cough, # 120 mL, 1 Refill(s) Special Instructions: 1 Teaspoon Oral in evening as needed for cough Start Date: 11/17/14 Status: Ordered tiZANidine 4 mg oral tablet 1 tabs, Oral, TID, 0 Refill(s) Start Date: 04/18/14 Status: Ordered traZODone 100 mg oral tablet [...] IN THE EVENING, # 30 unknown unit, 2 Refill(s), eRx: [facility], TAKE 1 TABLET ( 20MG) BY ORAL ROUTE EVERY DAY IN THE EVENING Special Instructions: TAKE 1 TABLET (20MG) BY ORAL ROUTE EVERY DAY IN THE EVENING Start Date: 11/10/14 Status: Ordered Results No data available for this section Immunizations Vaccine Date Refusal Reason tetanus/diphth/pertuss (Tdap) adult/adol 01/12/97 influenza virus vaccine, live 09/06/08 Procedures Procedure Date Related Diagnosis Body Site section Tonsillectomy Social History Social History Type Response Smoking Status Current some day smoker; Type: Cigarettes; Tobacco use per day: More than 1 pack; Number of years: 20 Assessment and Plan No data available for this section
--- OUTSIDE RECORDS SUMMARY | 2017-02-12 22:20 | XMS REPORT | Referral Summary ---
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 [employer] Operator Name Role Phone Dian Cardenas Primary Care Physician [phone] Encounter VC Date(s): 05/10/16 - 05/10/16 [facility] [address] [place] [address] Discharge Disposition: 01-Home or Self Care Attending Physician: Wong Cardenas MD Vital Signs Most recent to 1 oldest [Reference Range]: Peripheral Pulse 96 bpm Rate [60-100 bpm] (05/10/16 9:48 AM) Blood Pressure 120/70 mmHg [90-140/60-90 mmHg] (05/10/16 9:48 AM) SpO2 93 % (05/10/16 9:48 AM) Problem List Condition Effective Dates Status [...] HOURS, # 60 Each, 5 Refill(s), Pharmacy: [facility] Start Date: 12/01/15 Status: Ordered albuterol 0.63 mg/3 mL (0.021%) inhalation solution 0.63 mg 3 mL, NEB, TID, j 18.9, # 270 mL, 11 Refill(s), [facility]: [email or web address] Start Date: 01/19/16 Status: Ordered Bactroban 2% topical ointment rudy, Topical, BID, 0 Refill(s) Start Date: 04/18/14 Status: Ordered Chantix Continuing Month 1 mg oral tablet 1 mg 1 tabs, Oral, BID, # 56 tabs, 3 Refill(s), [facility]: [email or web address], 1 tabs Oral BID Start Date: 01/31/16 Status: Ordered Chantix Starter Pack 0.5 mg-1 mg oral tablet See Instructions, 1 tabs Oral BID, # 1 packets, 0 Refill(s), [facility] Start Date: 01/31/16 Status: Ordered clonazePAM 0.5 mg oral tablet [...] NOSTRIL, # 3 Each, 5 Refill(s), Pharmacy: [facility] [address] Start Date: 11/06/15 Status: Ordered FREESTYLE LANCETS 100'S See Instructions, TEST BLOOD SUGARS THREE TIMES DAILY, # 300 unknown unit, eRx: [id number], TEST BLOOD SUGARS THREE TIMES DAILY Start Date: 04/24/16 Status: Ordered Glucometer Lancets (DME) DME Item freestyle lancets test tid, See Instructions, # 300 Each, 0 Refill(s), Pharmacy: [facility] [address], freestyle lancets test tid, Supply Start Date: 01/24/16 Status: Ordered Lantus Solostar Pen 100 units/mL subcutaneous solution See Instructions, INJECT 30 UNITS BY SUBCUTANEOUS ROUTE AT BEDTIME, # 15 unknown unit, 10 Refill(s), eRx: [facility], INJECT 30 UNITS BY SUBCUTANEOUS ROUTE AT BEDTIME Start Date: 05/25/15 Status: Ordered Lotrisone 1%-0.05% topical cream See Instructions, rudy Topical BID, # 45 g, 0 Refill(s), Indication: apply BID to affected ski Start Date: 05/10/16 Stop Date: 10/07/16 Status: Ordered Miscellaneous DME DME Item b-d jorge luis pen needles dx 250.00, See Instructions, # 100 Each, 12 Refill(s), Pharmacy: [facility] [address], b-d jorge luis pen needles; dx 250.00 , Supply Start Date: 05/18/15 Status: Ordered Mobic 15 mg oral tablet See Instructions, TAKE 1 TABLET (15MG) BY ORAL ROUTE BID, # 60 tabs, 5 Refill(s) , Pharmacy: [facility] [address], TAKE 1 TABLET (15MG) BY ORAL ROUTE BID Start Date: 01/18/16 Status: Ordered [place] 7.5 mg-325 mg oral tablet See Instructions, 1-2 tabs Oral q4hr, # 70 tabs, 0 Refill(s), Indication: prn pain Start Date: 05/10/16 Status: Ordered NovoLOG FlexPen 100 units/mL subcutaneous solution See Instructions, TAKE 25 U ; BEFORE BREAKFAST, 12-15 U ; BEFORE LUNCH, AND 20 U ; BEFORE DINNER, # 15 mL, 9 Refill(s), Pharmacy: [facility], TAKE 25 U ; BEFORE BREAKFAST, 12-15 U ; BEFORE LUNCH, AND 20 U ; BEFORE DINNER Start Date: 11/30/15 Status: Ordered ProAir HFA 90 mcg/inh inhalation aerosol See Instructions, INHALE 2 PUFF(S) BY MOUTH ROUTE 4 TIMES EVERY DAY AND NEEDED, # 8.5 Each, 2 Refill(s), Pharmacy: [facility] Start Date: 08/24/15 Status: Ordered promethazine-codeine 6.25 mg-10 mg/5 mL oral syrup See Instructions, 1 Teaspoon Oral in evening as needed for cough, # 120 mL, 0 Refill(s), called to pharmacy (Rx) Start Date: 08/25/15 Status: Ordered Spiriva 18 mcg inhalation capsule 18 mcg 1 caps, Inhalation, Daily, # 30 Each, 3 Refill(s), Pharmacy: [email or web address] [address], 1 caps Inhalation Daily Start Date: 04/11/16 Status: Ordered testing strips testing strips, See Instructions, Freestyle insulin X testing strips testing three times a day Dx E 11.9, # 100 Each, 11 Refill(s), Pharmacy: [email or web address] [address], Freestyle insulin X testing strips testing three times a day ; Dx E 11.9 Start Date: 04/16/16 Status: Ordered tiZANidine 4 mg oral tablet 1 tabs, Oral, TID, 0 Refill(s) Start Date: 04/18/14 Status: Ordered traMADol 50 mg oral tablet 50 mg 1 tabs, Oral, QID, prn pain, # 100 tabs, 0 Refill(s) Start Date: 05/10/16 Status: Ordered Zocor 20 mg oral tablet See Instructions, TAKE 1 TABLET (20MG) BY ORAL ROUTE EVERY DAY IN THE EVENING, # 30 Each, 6 Refill(s), Pharmacy: [facility], TAKE 1 TABLET ( 20MG) BY ORAL ROUTE EVERY DAY IN THE EVENING Start Date: 11/29/15 Status: Ordered Results Chemistry Most recent to 1 oldest [Reference Range]: Sodium Lvl [135-144 141 mEq/L mEq/L] (05/10/16 10:37 AM) Potassium Lvl 4.5 mEq/L [3.5-5.2 mEq/L] (05/10/16 10:37 AM) Chloride [99-111 106 mEq/L mEq/L] (05/10/16 10:37 AM) CO2 [22-31 mEq/L] 27 mEq/L (05/10/16 10:37 AM) AGAP [3-20] 8 (05/10/16 10:37 AM) BUN [10-20 mg/dL] 15 mg/dL (05/10/16 10:37 AM) Glucose Lvl [70-99 157 mg/dL mg/dL] *HI* (05/10/16 10:37 AM) Creatinine Lvl 0.76 mg/dL [0.57-1.11 mg/dL] (05/10/16 10:37 AM) eGFR [>60 mL/min] >60 mL/min 1 (05/10/16 10:37 AM) Calcium Lvl 9.6 mg/dL [8.9-10.5 mg/dL] (05/10/16 10:37 AM) Albumin Lvl [3.4-4.8 4.3 gm/dL gm/dL] (05/10/16 10:37 AM) Total Protein 6.1 gm/dL 2 [6.0-7.6 gm/dL] (05/10/16 10:37 AM) Globulin [1.8-4.0 1.8 gm/dL gm/dL] (05/10/16 10:37 AM) ALT [0-55 U/L] 15 U/L (05/10/16 10:37 AM) AST [5-34 U/L] 15 U/L (05/10/16 10:37 AM) Alk Phos [40-150 41 U/L U/L] (05/10/16 10:37 AM) Bili Total [0.2-1.2 0.2 mg/dL mg/dL] (05/10/16 10:37 AM) Chol [0-199 mg/dL] 171 mg/dL (05/10/16 10:37 AM) Trig [0-149 mg/dL] 297 mg/dL *HI* (05/10/16 10:37 AM) HDL [40-84 mg/dL] 45 mg/dL (05/10/16 10:37 AM) LDL [0-130 mg/dL] 67 mg/dL (05/10/16 10:37 AM) VLDL Cholesterol 59 mg/dL [0-28 mg/dL] *HI* (05/10/16 10:37 AM) Cardiac Risk 3.8 [0.0-5.0] (05/10/16 10:37 AM) TSH [0.35-4.94] 0.92 (05/10/16 10:37 AM) Hgb A1c [4.1-5.6 %] 5.9 % *HI* (05/10/16 10:37 AM) eAvg Glucose 122.6 mg/dL (05/10/16 10:37 AM) 1Result Comment: Multiply eGFR results by 1.21 for race. 2Result Comment: Please note new reference range for adult Protein. Urinalysis Most recent to 1 oldest [Reference Range]: UA Color Yellow (05/10/16 2:42 PM) UA Appear Clear (05/10/16 2:42 PM) UA pH [5.0-8.0] 6.5 (05/10/16 2:42 PM) UA Leuk Est Negative [Negative] (05/10/16 2:42 PM) UA Nitrite Negative [Negative] (05/10/16 2:42 PM) UA Protein Negative [Negative] (05/10/16 2:42 PM) UA Glucose Pos 3+ [Negative] *ABN* (05/10/16 2:42 PM) UA Ketones Negative [Negative] (05/10/16 2:42 PM) UA Urobilinogen 0.2 mg/dL [<1.0 mg/dL] (05/10/16 2:42 PM) UA Bili [Negative] Negative (05/10/16 2:42 PM) UA Blood [Negative] Negative (05/10/16 2:42 PM) UA Spec Grav 1.023 [1.003-1.030] (05/10/16 2:42 PM) Type Clean Catch (05/10/16 2:42 PM) UA WBC [0-4] 2-4 (05/10/16 2:42 PM) UA RBC [0-4] 0-4 (05/10/16 2:42 PM) Epithelial Cells 5-10 (05/10/16 2:42 PM) UA Hyal Cast [0-3] 4-6 *ABN* (05/10/16 2:42 PM) Immunizations Vaccine Date Refusal Reason tetanus/diphth/pertuss (Tdap) adult/adol 01/12/97 influenza virus vaccine, live 09/06/08 Procedures Procedure Date Related Diagnosis Body Site section Tonsillectomy Social History Social History Type Response Smoking Status Current some day smoker; Type: Cigarettes; Tobacco use per day: More than 1 pack; Number of years: 20 Assessment and Plan Extracted from: Title: Ambulatory Patient Education Author: Sravani Tellez Date: 05/10/16 Emergency Medicine Chronic Obstructive Pulmonary Disease Chronic obstructive pulmonary disease (COPD) is a common lung condition in which airflow from the lungs is limited. COPD is a general term that can be used to describe many different lung problems that limit airflow, including both chronic bronchitis and emphysema. If you have COPD, your lung function will probably never return to normal, but there are measures you can take to improve lung function and make yourself feel better. CAUSES Smoking (common). Exposure to secondhand smoke. Genetic problems. Chronic inflammatory lung diseases or recurrent infections. SYMPTOMS Shortness of breath, especially with physical activity. Deep, persistent (chronic) cough with a large amount of thick mucus. Wheezing. Rapid breaths (tachypnea). [place] or bluish discoloration (cyanosis) of the skin, especially in your fingers, toes, or lips. Fatigue. Weight loss. Frequent infections or episodes when breathing symptoms become much worse (exacerbations). Chest tightness. DIAGNOSIS Your health care provider will take a medical history and perform a physical examination to diagnose COPD. Additional tests for COPD may include: Lung (pulmonary) function tests. Chest X-ray. CT scan. Blood tests. TREATMENT Treatment for COPD may include: Inhaler and nebulizer medicines. These help manage the symptoms of COPD and make your breathing more comfortable. Supplemental oxygen. Supplemental oxygen is only helpful if you have a low oxygen level in your blood. Exercise and physical activity. These are beneficial for nearly all people with COPD. Lung surgery or transplant. Nutrition therapy to gain weight, if you are underweight. Pulmonary rehabilitation. This may involve working with a team of health care providers and specialists, such as respiratory, occupational, and physical therapists. HOME CARE INSTRUCTIONS Take all medicines (inhaled or pills) as directed by your health care provider. Avoid [id number] medicines or cough syrups that dry up your airway (such as antihistamines) and slow down the elimination of secretions unless instructed otherwise by your health care provider. If you are a smoker, the most important thing that you can do is stop smoking. Continuing to smoke will cause further lung damage and breathing trouble. Ask your health care provider for help with quitting smoking. He or she can direct you to community resources or hospitals that provide support. Avoid exposure to irritants such as smoke, chemicals, and fumes that aggravate your breathing. Use oxygen therapy and pulmonary rehabilitation if directed by your health care provider. If you require home oxygen therapy, ask your health care provider whether you should purchase a pulse oximeter to measure your oxygen level at home. Avoid contact with individuals who have a contagious illness. Avoid extreme temperature and humidity changes. Eat healthy foods. Eating smaller, more frequent meals and resting before meals may help you maintain your strength. Stay active, but balance activity with periods of rest. Exercise and physical activity will help you maintain your ability to do things you want to do. Preventing infection and hospitalization is very important when you have COPD. Make sure to receive all the vaccines your health care provider recommends , especially the pneumococcal and influenza vaccines. Ask your health care provider whether you need a pneumonia vaccine. Learn and use relaxation techniques to manage stress. Learn and use controlled breathing techniques as directed by your health care provider. Controlled breathing techniques include: Pursed lip breathing. Start by breathing in (inhaling) through your nose for 1 second. Then, purse your lips as if you were going to whistle and breathe out (exhale) through the pursed lips for 2 seconds. Diaphragmatic breathing. Start by putting one hand on your abdomen just above your waist. Inhale slowly through your nose. The hand on your abdomen should move out. Then purse your lips and exhale slowly. You should be able to feel the hand on your abdomen moving in as you exhale. Learn and use controlled coughing to clear mucus from your lungs. Controlled coughing is a series of short, progressive coughs. The steps of controlled coughing are: 1.Lean your head slightly forward. 2.Breathe in deeply using diaphragmatic breathing. 3.Try to hold your breath for 3 seconds. 4.Keep your mouth slightly open while coughing twice. 5.Spit any mucus out into a tissue. 6.Rest and repeat the steps once or twice as needed. SEEK MEDICAL CARE IF: You are coughing up more mucus than usual. There is a change in the color or thickness of your mucus. Your breathing is more labored than usual. Your breathing is faster than usual. SEEK IMMEDIATE MEDICAL CARE IF: You have shortness of breath while you are resting. You have shortness of breath that prevents you from: Being able to talk. Performing your usual physical activities. You have chest pain lasting longer than 5 minutes. Your skin color is more cyanotic than usual. You measure low oxygen saturations for longer than 5 minutes with a pulse oximeter. MAKE SURE YOU: Understand these instructions. Will watch your condition. Will get help right away if you are not doing well or get worse. This information is not intended to replace advice given to you by your health care provider. Make sure you discuss any questions you have with your health care provider. Document Released: 07/23/2006 Document Revised: 11/03/2015 Document Reviewed: [employer] Patient Information 2016 [employer] [facility]. No follow up information was provided. Extracted from: Title: Diabetes, Type 2 * Author: Wong Cardenas MD Date: 05/10/16 Impression and Plan Diagnosis Advanced COPD (TBP09-WM J44.9, Working, Medical). Diabetes (TMC66-RT E11.9, Working, Medical). Fungal infection of skin (YTM30-OS B36.9, Working, Medical). Plan: Refer to: Will recheck labwork today (see below). Will refill [place] and Tramadol scripts today. Rx given for Lotrisone crm. for fungal infect.. Patient Instructions: Chronic Obstructive Pulmonary Disease. Orders Orders (Selected) Outpatient Orders Ordered CMP: Hgb A1c: Lipid Panel: Office Visit Level 3 Est 50321: TSH 3rd Generation: eGFR: Ordered (Pending Collection) UA Macroscopic Only: UA Microscopic Only: Future (On Hold) Hgb A1c: Prescriptions Prescribed Lotrisone 1%-0.05% topical cream: See Instructions, rudy Topical BID, 45 g, 0 Refill(s) [place] 7.5 mg-325 mg oral tablet: See Instructions, 1-2 tabs Oral q4hr, 70 tabs, 0 Refill(s) traMADol 50 mg oral tablet: 50 mg=1 tabs, Oral, QID, prn pain, 100 tabs, 0 Refill(s).
--- OUTSIDE RECORDS SUMMARY | 2017-02-12 22:20 | XMS REPORT | Referral Summary ---
Author Author [facility] Organization [facility] Address Unknown Phone Unavailable Care Team Providers Care Automotive Repair Technician Name Role Phone Dian Cardenas Primary Care Physician [phone] Encounter VC Date(s): 08/22/15 - 08/22/15 [facility] E [address] [address]- Discharge Diagnosis: Pneumonia Discharge Disposition: 01-Home or Self Care Attending Physician: Wong Cardenas MD Admitting Physician: Wong Cardenas MD Vital Signs Most recent to 1 oldest [Reference Range]: Temperature Tympanic 37.2 degC [36.6-38.1 degC] (08/22/15 11:46 AM) Peripheral Pulse 98 bpm Rate [60-100 bpm] (08/22/15 11:46 AM) Blood Pressure 136/80 mmHg [90-140/60-90 mmHg] (08/22/15 11:46 AM) SpO2 91 % (08/22/15 11:46 AM) Problem List Condition Effective Dates Status [...] HOURS, # 60 Each, 5 Refill(s), Pharmacy: [id number] Start Date: 12/01/15 Status: Ordered albuterol 0.63 mg/3 mL (0.021%) inhalation solution 0.63 mg 3 mL, NEB, TID, j 18.9, # 270 mL, 11 Refill(s), Pharmacy: [facility] [id number] Start Date: 01/19/16 Status: Ordered albuterol CFC free 90 mcg/inh [...] QID, # 100 Each, 3 Refill(s), Pharmacy: [facility] [id number], SubCutaneous QID Start Date: 07/07/14 Status: Ordered Ceftin 500 mg oral tablet 500 mg 1 tabs, Oral, BID, # 20 tabs, 0 Refill(s) Start Date: 01/15/16 Stop Date: 01/25/16 Status: Ordered Chantix Continuing Month 1 mg oral tablet 1 mg 1 tabs, Oral, BID, # 56 tabs, 3 Refill(s), Pharmacy: [facility] [id number], 1 tabs Oral BID Start Date: 01/31/16 Status: Ordered Chantix Starter Pack 0.5 mg-1 mg oral tablet See Instructions, 1 tabs Oral BID, # 1 packets, 0 Refill(s), Pharmacy: [id number] Start Date: 01/31/16 Status: Ordered clonazePAM 0.5 [...] NOSTRIL, # 3 Each, 5 Refill(s), Pharmacy: [facility] Start Date: 11/06/15 Status: Ordered FreeStyle Lancets See Instructions, USE 1 BY SUBCUTANEOUS ROUTE 3 TIMES EVERY, # 300 unknown unit , 11 Refill(s), eRx: [facility] [id number], USE 1 BY SUBCUTANEOUS ROUTE 3 TIMES EVERY Start Date: 01/16/15 Status: Ordered FreeStyle Lite Strips See Instructions, INJECT 1 BY INTRADERMAL ROUTE 3 TIMES EVERY DAY, # 300 unknown unit, 11 Refill(s), eRx: [facility] [id number], INJECT 1 BY INTRADERMAL ROUTE 3 TIMES EVERY DAY Start Date: 04/24/15 Status: Ordered FreeStyle Lite Strips See Instructions, INJECT 1 BY INTRADERMAL ROUTE 3 TIMES EVERY DAY, # 300 unknown unit, 11 Refill(s), eRx: [facility] [id number], INJECT 1 BY INTRADERMAL ROUTE 3 TIMES EVERY DAY Start Date: 01/16/15 Status: Ordered Glucometer Lancets (DME) DME Item freestyle lancets test tid, See Instructions, # 300 Each, 0 Refill(s), Pharmacy: [facility], freestyle lancets test tid, Supply Start Date: 01/24/16 Status: Ordered Lantus Solostar Pen 100 units/mL subcutaneous solution See Instructions, INJECT 30 UNITS BY SUBCUTANEOUS ROUTE AT BEDTIME, # 15 unknown unit, 10 Refill(s), eRx: [facility] [id number], INJECT 30 UNITS BY SUBCUTANEOUS ROUTE AT BEDTIME Start Date: 05/25/15 Status: Ordered Miscellaneous DME DME Item b-d jorge luis pen needles dx 250.00, See Instructions, # 100 Each, 12 Refill(s), Pharmacy: [id number], b-d jorge luis pen needles; dx 250.00 , Supply Start Date: 05/18/15 Status: Ordered Mobic 15 mg oral tablet See Instructions, TAKE 1 TABLET (15MG) BY ORAL ROUTE BID, # 60 tabs, 5 Refill(s) , Pharmacy: [facility] [id number], TAKE 1 TABLET (15MG) BY ORAL ROUTE BID Start Date: 01/18/16 Status: Ordered [place] 7.5 mg-325 mg oral tablet See Instructions, 1-2 tabs Oral q4hr, # 70 tabs, 0 Refill(s), Indication: prn pain Start Date: 02/15/16 Status: Ordered NovoLOG FlexPen 100 units/mL subcutaneous solution See Instructions, TAKE 25 U ; BEFORE BREAKFAST, 12-15 U ; BEFORE LUNCH, AND 20 U ; BEFORE DINNER, # 15 mL, 9 Refill(s), Pharmacy: [facility] [id number], TAKE 25 U ; BEFORE BREAKFAST, 12-15 U ; BEFORE LUNCH, AND 20 U ; BEFORE DINNER Start Date: 11/30/15 Status: Ordered ProAir HFA 90 mcg/inh inhalation aerosol See Instructions, INHALE 2 PUFF(S) BY MOUTH ROUTE 4 TIMES EVERY DAY AND NEEDED, # 8.5 Each, 2 Refill(s), Pharmacy: [id number] Start Date: 08/24/15 Status: Ordered promethazine-codeine 6.25 [...] # 100 tabs, 0 Refill(s) Start Date: 02/15/16 Status: Ordered zaleplon 10 mg oral capsule 1 caps, Oral, Bedtime (once a day), as needed for sleep, 0 Refill(s) Start Date: 04/18/14 Status: Ordered Zocor 20 mg oral tablet See Instructions, TAKE 1 TABLET (20MG) BY ORAL ROUTE EVERY DAY IN THE EVENING, # 30 Each, 6 Refill(s), Pharmacy: [facility] [id number], TAKE 1 TABLET ( 20MG) BY ORAL ROUTE EVERY DAY IN THE EVENING Start Date: 11/29/15 Status: Ordered Results Urinalysis Most recent to 1 oldest [Reference Range]: UA Color Yellow (08/22/15 11:50 AM) UA Appear Sl Cloudy (08/22/15 11:50 AM) UA pH [5.0-8.0] 6.5 (08/22/15 11:50 AM) UA Leuk Est Trace [Negative] *ABN* (08/22/15 11:50 AM) UA Nitrite Negative [Negative] (08/22/15 11:50 AM) UA Protein Negative [Negative] (08/22/15 11:50 AM) UA Glucose Negative [Negative] (08/22/15 11:50 AM) UA Ketones Negative [Negative] (08/22/15 11:50 AM) UA Urobilinogen 0.2 mg/dL (08/22/15 11:50 AM) UA Bili [Negative] Negative (08/22/15 11:50 AM) UA Blood Negative (08/22/15 11:50 AM) UA Spec Grav 1.020 [1.003-1.030] (08/22/15 11:50 AM) Type Clean Catch (08/22/15 11:50 AM) UA WBC [0-4] 2-4 (08/22/15 11:50 AM) Epithelial Cells 10-20 (08/22/15 11:50 AM) UA Bacteria Occasional *ABN* (08/22/15 11:50 AM) UA Mucous Present (08/22/15 11:50 AM) Microbiology Reports TEST: Urine Culture STATUS: Auth (Verified) BODY SITE: SOURCE: Urine, Clean Catch COLLECTED DATE/TIME: 08/22/15 11:50 AM Urine Culture Normal urogenital/skin rigoberto present Immunizations Vaccine Date Refusal Reason tetanus/diphth/pertuss (Tdap) adult/adol 01/12/97 influenza virus vaccine, live 09/06/08 Procedures Procedure Date Related Diagnosis Body Site section Tonsillectomy Social History Social History Type Response Smoking Status Current some day smoker; Type: Cigarettes; Tobacco use per day: More than 1 pack; Number of years: 20 Assessment and Plan Extracted from: Title: Office Visit Note Author: Wong Cardenas MD Date: 08/22/15 Assessment/Plan 1.Pneumonia she will use her albuterol inhaler every three hours and continue rest of meds will call back in 3 days if no better Urinary symptom or sign Urine was clear today Ordered: Urinalysis Microscopic Urine Culture Urine Dipstick
--- OUTSIDE RECORDS SUMMARY | 2017-02-12 22:20 | XMS REPORT | Continuity of Care Document ---
Author Author [facility] Organization [facility] Address Unknown Phone Unavailable Allergies Medications Problems Procedures Results Encounters ACCT No. Visit Date/Time Discharge Status Pt. Type Provider Facility Loc./Unit Complaint [id number] 12/20/2013 14:28:00 12/20/2013 23 :59:59 [facility] Outpatient [id number] 11/16/2013 08:58:00 11/16/2013 23 :59:59 CLS Outpatient [id number] 09/20/2013 09:06:00 09/20/2013 23 :59:59 CLS Outpatient [id number] 08/16/2013 09:35:00 08/16/2013 23 :59:59 CLS Outpatient
--- OUTSIDE RECORDS SUMMARY | 2017-02-12 22:21 | XMS REPORT | Continuity of Care Document ---
Author Author Fabiola Michael MA Ambulatory Address [address] [place] [id number] Phone Unavailable Care Team Providers Care Criminal Intelligence Specialist Name Role Phone Wong Cardenas PP Unavailable Payers Payer name Insurance type Covered libertarian ID Authorization(s) Unknown Problems Condition Effective Dates (start - stop) Clinical Status Unspecified cellulitis and abscess of toe - *Acute Dermatophytosis of nail - *Chronic Pain in limb - *Chronic Unspecified cellulitis and abscess of toe - *Chronic Dermatophytosis of nail - *Chronic Pain in joint involving ankle and foot - *Acute Bronchitis, not specified as acute or chronic - *Acute ACUTE BRONCHOSPASM - *Acute Ulcer of other part of foot - *Chronic Other hammer toe (acquired) - *Chronic Diabetes Mellitus Type 2, Uncomplicated - *Fair Control Ingrowing nail - *Acute Lumbago - *Acute Unspecified local infection of [...] , not stated as uncontrolled - *Chronic Depressive disorder, not elsewhere classified - *Chronic [...] Dosage Effective Dates (start - stop) Status Cymbalta 60 mg capsule,delayed release take 2 [...] day at bedtime as needed - Active FreeStyle Lancets 28 gauge Use 1 by Subcutaneous route 3 times every - Active FreeStyle Lite Strips inject 1 by Intradermal route 3 times every day - Active minocycline 100 mg capsule take 1 capsule (100MG) by oral route 2 times every day 100 MG - Active Lantus Solostar 100 unit/mL (3 mL) Sub-Q Insulin Pen inject by subcutaneous route as per insulin protocol 0 - Active Novolog Flexpen 100 unit/mL Sub-Q inject by subcutaneous route as per insulin sliding scale protocol 0 - Active use with insulin pen 4 times daily - Active Mobic 15 mg tablet take 1 tablet (15MG) by ORAL route BID - Active clonazepam 0.5 mg tablet take 2 Tablet (1MG) by oral route every bedtime 1 MG - Active Bactroban 2 % Topical Cream apply a small amount to the affected area BID - Active Septra DS 800 mg-160 mg tablet take 1 tablet by oral route every 12 hours 0 - Active Advair Diskus 250 mcg-50 mcg/dose powder for inhalation 1 INHALATION q 12 hours - Active tizanidine 4 mg tablet take 1 tablet (4MG) by oral route 3 times every day 4 MG - Active Lortab 7.5 mg-500 mg tablet take 1 - 2 tablet by ORAL route every 4 hours as needed for pain 0 - Active Zocor 20 mg tablet take 1 tablet (20MG) by ORAL route every day in the evening - Active fluticasone 50 mcg/actuation Nasal [place], Susp inhale 1 - 2 spray by Intranasal route every day in each nostril - Active ProAir HFA 90 mcg/actuation Aerosol Inhaler inhale 2 Puff(s) by mouth route 4 times every day and as needed 0 - Active promethazine-codeine 6.25 mg-10 mg/5 mL Syrup take 1 Teaspoon at hs prn cough - Active Immunizations Vaccine Date Status Comments Tdap completed - Completed reason: Previously Given flu (split) (3 yrs or older) completed - Completed reason: Previously given Results Test Name Date and Time Measure Units Reference Range Abnormal Flag Comments Unknown Vital Signs Date / Time: Height Weight Pulse Rate Blood Pressure Temperature Unknown Procedures Procedure Date Unknown Encounters Encounter Location Date Patient Visit [facility] [place] [facility] Visit [facility] [place] Patient Visit [facility] [place] Patient [place] [facility] [place] Patient [facility] [place] [facility] [place] [facility] [place] [facility] [place] [facility] [place] [facility] [place] [facility] [place] [facility] [place] [facility] [place] [facility] [place] [facility] [place] [facility] [place] [facility] [place] [facility] Patient [facility] [place] [facility] [place] [facility] Patient [facility] Patient [facility] [place] [facility] Patient [facility] [place] [facility] [place] [facility] [place] [facility] [place] [facility] Patient [facility] [place] [facility] Visit [facility] Patient Visit [facility] Patient [facility] [place] [facility] [place] [facility] [place] [facility] [place] [facility] [place] [facility] [place] [facility] [place] [facility] [place] [facility] Patient [facility] [place] [facility] [place] [facility] [place] [facility] [place] [facility] [place] Visit [facility] [place] Patient Visit [facility] Patient Visit [facility] Patient Visit [facility] Advance Directives Directive Effective Date Unknown
--- OUTSIDE RECORDS SUMMARY | 2017-02-12 22:21 | XMS REPORT | Continuity of Care Document ---
Author Author Fabiola Michael MA Ambulatory Address [facility] [place] [address] Phone Unavailable Care Team Providers Care Globe Cleaner Name Role Phone Wong Cardenas PP Unavailable [...] of the oral soft tissues - *Acute Diabetes mellitus without mention of [...] type], not stated as uncontrolled - *Chronic Lumbago - *Acute Pain [...] day at bedtime as needed - Active ProAir HFA 90 mcg/actuation Aerosol Inhaler inhale 1 - 2 puff by INHALATION route 4 - 6 hours as needed - Active FreeStyle Lancets 28 [...] insulin sliding scale protocol 0 - Active Zocor 20 mg tablet take 1 tablet (20MG) by ORAL route every day in the evening - Active use with insulin pen 4 times daily - Active fluticasone 50 mcg/actuation Nasal [place], Susp inhale 1 - 2 spray by Intranasal route every day in each nostril - Active Mobic 15 mg tablet take [...] 1 INHALATION q 12 hours - Active promethazine-codeine 6.25 mg-10 mg/5 mL Syrup take 1 Teaspoon at hs prn cough - Active tizanidine 4 mg tablet take [...] Unknown Encounters Encounter Location Date Patient Visit [facility] [place] Patient Visit [facility] [place] Patient Visit [facility] [place] Patient Visit [facility] [place] Patient Visit [facility] [place] Patient [facility] [place] Patient [facility] [place] [facility] [place] Patient [facility] [place] Patient [facility] [place] Patient [facility] [place] Patient Visit [facility] [place] Patient [facility] [place] Patient [facility] [place] Patient [facility] [place] Patient [facility] [place] Patient [facility] [place] Patient [facility] [place] Patient Visit [facility] [place] Patient [facility] [place] Patient Visit [facility] [place] Patient Visit [facility] [place] Patient [facility] [place] Patient [facility] [place] Patient Visit [facility] [place] Patient Visit [facility] [place] Patient [facility] [place] Patient [facility] [place] Patient Visit [facility] [place] Patient Visit [facility] [place] Patient Visit [facility] [place] Patient Visit [facility] [place] Patient [facility] [place] Patient Visit [facility] [place] Patient Visit [facility] Patient Visit [facility] [place] Patient [facility] [place] Patient Visit [facility] [place] Patient Visit [facility] [place] Patient Visit [facility] [place] Patient Visit [facility] [place] Patient [facility] [place] Patient Visit [facility] [place] Patient Visit [facility] [place] Patient [facility] [place] Patient [facility] [place] Patient [facility] [place] Patient [facility] [place] Patient [facility] [place] Patient Visit [facility] [place] Patient [facility] [place] Patient Visit [facility] [place] Patient Visit [facility] [place] Advance Directives Directive Effective Date Unknown
--- OUTSIDE RECORDS SUMMARY | 2017-02-12 22:21 | XMS REPORT | Referral Summary ---
Author Author [facility] Organization [facility] Address Unknown Phone Unavailable Care Team Providers Care Insurance Adviser Name Role Phone Dian Cardenas Primary Care Physician [phone] Encounter Date(s): 08/22/15 - 08/22/15 [facility] [address] [id number] Discharge Diagnosis: Pneumonia Discharge Disposition: 01-Home or [...] Advair Diskus 250 mcg-50 mcg inhalation powder 1 puffs, Inhalation, BID, # 28 Each, 0 Refill(s), other reason (Rx) Start Date: 06/15/15 Status: Ordered Advair Diskus 250 mcg-50 mcg inhalation powder See Instructions, 1 INHALATION Q 12 HOURS, # 60 unknown unit, 5 Refill(s), eRx: [facility] [id number], 1 INHALATION Q 12 HOURS Start Date: [...] QID, # 100 Each, 3 Refill(s), Pharmacy: [facility] [id number], SubCutaneous QID Start Date: 07/07/14 Status: Ordered [...] # 16 unknown unit, 5 Refill(s), eRx: [facility] [id number], INHALE 1 - 2 SPRAY BY INTRANASAL ROUTE EVERY DAY IN EACH NOSTRIL Start Date: 05/17/15 Status: Ordered FreeStyle Lancets See Instructions, USE 1 BY SUBCUTANEOUS ROUTE 3 TIMES EVERY, # 300 unknown unit , 11 Refill(s), eRx: [facility] [id number], USE 1 BY SUBCUTANEOUS ROUTE 3 TIMES EVERY Start Date: 01/16/15 Status: Ordered FreeStyle Lite Strips See Instructions, INJECT 1 BY INTRADERMAL ROUTE 3 TIMES EVERY DAY, # 300 unknown unit, 11 Refill(s), eRx: [facility] , INJECT 1 BY INTRADERMAL ROUTE 3 TIMES EVERY DAY Start Date: 04/24/15 Status: Ordered FreeStyle Lite Strips See Instructions, INJECT 1 BY INTRADERMAL ROUTE 3 TIMES EVERY DAY, # 300 unknown unit, 11 Refill(s), eRx: [facility] , INJECT 1 BY INTRADERMAL ROUTE 3 TIMES EVERY DAY Start Date: 01/16/15 Status: Ordered Lantus Solostar Pen 100 units/mL subcutaneous solution See Instructions, INJECT 30 UNITS BY SUBCUTANEOUS ROUTE AT BEDTIME, # 15 unknown unit, 10 Refill(s), eRx: [facility] , INJECT 30 UNITS BY SUBCUTANEOUS ROUTE AT BEDTIME Start Date: 05/25/15 Status: Ordered Miscellaneous DME DME Item b-d jorge luis pen needles dx 250.00, See Instructions, # 100 Each, 12 Refill(s), Pharmacy: [facility] , b-d jorge luis pen needles; dx 250.00 , Supply Start Date: 05/18/15 Status: Ordered Mobic 15 mg oral tablet See Instructions, TAKE 1 TABLET (15MG) BY ORAL ROUTE BID, # 60 unknown unit, 11 Refill(s), eRx: [facility] , TAKE 1 TABLET (15MG) BY ORAL ROUTE BID Start Date: 01/12/15 Status: Ordered [place] 7.5 mg-325 mg oral tablet See Instructions, 1-2 tabs Oral q4hr, # 70 tabs, 0 Refill(s), Indication: prn pain Start Date: 08/10/15 Status: Ordered NovoLOG FlexPen 100 units/mL subcutaneous solution See Instructions, TAKE 25 U ; BEFORE BREAKFAST, 12-15 U ; BEFORE LUNCH, AND 20 U ; BEFORE DINNER, # 1 boxes, 9 Refill(s), eRx: [facility] [id number], TAKE 25 U ; BEFORE BREAKFAST, 12-15 U ; BEFORE LUNCH, AND 20 U ; BEFORE DINNER Start Date: 03/15/15 Status: Ordered ProAir HFA 90 mcg/inh inhalation aerosol See Instructions, INHALE 2 PUFF(S) BY MOUTH ROUTE 4 TIMES EVERY DAY AND NEEDED, # 8.5 unknown unit, 2 Refill(s), eRx: [facility] , INHALE 2 PUFF(S) BY MOUTH ROUTE 4 TIMES EVERY DAY AND NEEDED Start Date: 10/21/14 Status: Ordered promethazine-codeine 6.25 mg-10 mg/5 mL oral syrup See Instructions, 1 Teaspoon Oral in evening as needed for cough, # 120 mL, 0 Refill(s), called to pharmacy (Rx) Start Date: 06/10/15 Status: Ordered tiZANidine 4 mg oral tablet 1 tabs, Oral, TID, 0 Refill(s) Start Date: 04/18/14 Status: Ordered traMADol 50 mg oral tablet 50 mg 1 tabs, Oral, QID, prn pain, # 100 tabs, 0 Refill(s), called to pharmacy ( Rx) Start Date: 05/12/15 Status: Ordered traZODone 100 mg oral tablet [...] # 30 unknown unit, 6 Refill(s), eRx: [facility] , TAKE 1 TABLET ( 20MG) BY ORAL ROUTE EVERY DAY IN THE EVENING Start Date: 06/12/15 Status: Ordered Zocor 20 mg oral tablet See Instructions, TAKE 1 TABLET (20MG) BY ORAL ROUTE EVERY DAY IN THE EVENING, # 30 unknown unit, eRx: [facility] , TAKE 1 TABLET (20MG) BY ORAL ROUTE EVERY DAY IN THE EVENING Start Date: 05/12/15 Status: Ordered Results Urinalysis Most recent to 1 oldest [Reference Range]: UA Color Yellow (08/22/15 11:50 AM) UA Appear Sl Cloudy (08/22/15 11:50 AM) UA pH [5.0-8.0] 6.5 (10/27/15 11:50 AM) UA Leuk Est Trace [Negative] [...] AM) UA Mucous Present (08/22/15 11:50 AM) Immunizations Vaccine Date Refusal Reason tetanus/diphth/pertuss [...]
--- OUTSIDE RECORDS SUMMARY | 2017-02-12 22:21 | XMS REPORT | Referral Summary ---
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 Role Phone Dian Cardenas Primary Care Physician [phone] Encounter VC Date(s): 10/17/15 - 10/17/15 [facility]itt[facility] E [address] [address]- Discharge Diagnosis: Bronchitis Discharge Disposition: 01-Home or Self Care Attending Physician: Wong Cardenas MD Admitting Physician: Wong Cardenas MD Vital Signs Most recent to 1 oldest [Reference Range]: Temperature Tympanic 37.2 degC [36.6-38.1 degC] (10/17/15 10:58 AM) Peripheral Pulse 90 bpm Rate [60-100 bpm] (10/17/15 10:58 AM) Blood Pressure 142/70 mmHg [90-140/60-90 mmHg] *HI* (10/17/15 10:58 AM) SpO2 94 % (10/17/15 10:58 AM) Problem List Condition Effective Dates Status [...] # 60 unknown unit, 5 Refill(s), eRx: [facility] [id number], 1 INHALATION Q 12 HOURS Start Date: [...] QID, # 100 Each, 3 Refill(s), Pharmacy: [facility] [id number], SubCutaneous QID Start Date: 07/07/14 Status: Ordered [...] # 16 unknown unit, 5 Refill(s), eRx: [facility] [id number], INHALE 1 - 2 SPRAY BY INTRANASAL ROUTE EVERY DAY IN EACH NOSTRIL Start Date: 05/17/15 Status: Ordered FreeStyle Lancets See Instructions, USE 1 BY SUBCUTANEOUS ROUTE 3 TIMES EVERY, # 300 unknown unit , 11 Refill(s), eRx: [facility] [id number], USE 1 BY SUBCUTANEOUS ROUTE 3 TIMES EVERY Start Date: 01/16/15 Status: Ordered FreeStyle Lite Strips See Instructions, INJECT 1 BY INTRADERMAL ROUTE 3 TIMES EVERY DAY, # 300 unknown unit, 11 Refill(s), eRx: [facility] [id number], INJECT 1 BY INTRADERMAL ROUTE 3 TIMES EVERY DAY Start Date: 04/24/15 Status: Ordered FreeStyle Lite Strips See Instructions, INJECT 1 BY INTRADERMAL ROUTE 3 TIMES EVERY DAY, # 300 unknown unit, 11 Refill(s), eRx: [facility] [id number], INJECT 1 BY INTRADERMAL ROUTE 3 TIMES EVERY DAY Start Date: 01/16/15 Status: Ordered Lantus Solostar Pen 100 units/mL subcutaneous solution See Instructions, INJECT 30 UNITS BY SUBCUTANEOUS ROUTE AT BEDTIME, # 15 unknown unit, 10 Refill(s), eRx: [facility] , INJECT 30 UNITS BY SUBCUTANEOUS ROUTE AT BEDTIME Start Date: 05/25/15 Status: Ordered Levaquin 500 mg oral tablet 500 mg 1 tabs, Oral, q24hr, X 10 days, # 10 tabs, 1 Refill(s), Pharmacy: [facility] [id number], 1 tabs Oral q24hr,x10 days Start Date: 10/17/15 Stop Date: 11/06/15 Status: Ordered Miscellaneous DME DME Item b-d jorge luis pen needles dx 250.00, See Instructions, # 100 Each, 12 Refill(s), Pharmacy: [facility] [id number], b-d jorge luis pen needles; dx 250.00 , Supply Start Date: 05/18/15 Status: Ordered Mobic 15 mg oral tablet See Instructions, TAKE 1 TABLET (15MG) BY ORAL ROUTE BID, # 60 unknown unit, 11 Refill(s), eRx: [facility] [id number], TAKE 1 TABLET (15MG) BY ORAL ROUTE BID Start Date: 01/12/15 Status: Ordered [place] 7.5 mg-325 mg oral tablet See Instructions, 1-2 tabs Oral q4hr, # 70 tabs, 0 Refill(s), Indication: prn pain Start Date: 09/28/15 Status: Ordered NovoLOG FlexPen 100 units/mL subcutaneous solution See Instructions, TAKE 25 U ; BEFORE BREAKFAST, 12-15 U ; BEFORE LUNCH, AND 20 U ; BEFORE DINNER, # 1 boxes, 9 Refill(s), eRx: [facility] [id number], TAKE 25 U ; BEFORE BREAKFAST, 12-15 U ; BEFORE LUNCH, AND 20 U ; BEFORE DINNER Start Date: 03/15/15 Status: Ordered ProAir HFA 90 mcg/inh inhalation aerosol See Instructions, INHALE 2 PUFF(S) BY MOUTH ROUTE 4 TIMES EVERY DAY AND NEEDED, # 8.5 Each, 2 Refill(s), Pharmacy: [facility] [id number] Start Date: 08/24/15 Status: Ordered promethazine-codeine 6.25 [...] # 30 unknown unit, 6 Refill(s), eRx: [facility] [id number], TAKE 1 TABLET ( 20MG) BY ORAL ROUTE EVERY DAY IN THE EVENING Start Date: 06/12/15 Status: Ordered Zocor 20 mg oral tablet See Instructions, TAKE 1 TABLET (20MG) BY ORAL ROUTE EVERY DAY IN THE EVENING, # 30 unknown unit, eRx: [facility] [id number], TAKE 1 TABLET (20MG) BY ORAL ROUTE [...] Patient Education Author: Wong Cardenas MD Date: ENT Upper Respiratory Infection, Adult An upper respiratory infection (URI) is also known as the common cold. It is often caused by a type of germ (virus). Colds are easily spread (contagious). You can pass it to others by kissing, coughing, sneezing, or drinking out of the same glass. Usually, you get better in 1 or 2 weeks. HOME CARE Only take medicine as told by your doctor. Use a warm mist humidifier or breathe in steam from a hot shower. Drink enough water and fluids to keep your pee (urine) clear or pale yellow. Get plenty of rest. Return to work when your temperature is back to normal or as told by your doctor. You may use a face mask and wash your hands to stop your cold from spreading. GET HELP RIGHT AWAY IF: After the first few days, you feel you are getting worse. You have questions about your medicine. You have chills, shortness of breath, or brown or red spit (mucus). You have yellow or brown snot (nasal discharge) or pain in the face, especially when you bend forward. You have a fever, puffy (swollen) neck, pain when you swallow, or white spots in the back of your throat. You have a bad headache, ear pain, sinus pain, or chest pain. You have a high-pitched whistling sound when you breathe in and out ( wheezing). You have a lasting cough or cough up blood. You have sore muscles or a stiff neck. MAKE SURE YOU: Understand these instructions. Will watch your condition. Will get help right away if you are not doing well or get worse. Document Released: 03/31/2009 Document Revised: 01/04/2013 Document Reviewed: ExitCare Patient Information 2015 [facility], [facility]. This information is not intended to replace advice given to you by your health care provider. Make sure you discuss any questions you have with your health care provider. No follow up information was provided.
--- OUTSIDE RECORDS SUMMARY | 2017-02-12 22:21 | XMS REPORT | Referral Summary ---
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 [address] [place], [place] [address] Discharge Diagnosis: Diabetes Discharge Diagnosis: Back pain Discharge Disposition: Home or Self Care Attending Physician: Wong Cardenas MD Admitting Physician: Wong Cardenas MD Vital Signs Most recent to 1 oldest [Reference Range]: Blood Pressure 132/64 mmHg [90-140/60-90 mmHg] (11/17/14 2:42 PM) Problem List Condition Effective Dates Status Health Status Informant Alcohol abuse Active (disorder)(Confirmed ) Asthma without Active status asthmaticus (disorder)(Confirmed ) Cellulitis and Active abscess of toe(Confirmed) Depressive Active disorder(Confirmed) Fibromyalgia(Confirm Active ed) Ingrown Active toenail(Confirmed) Nondependent tobacco Active use disorder(Confirmed) dermatophytosis of Active nail(Confirmed) Pain in Active [...] # 60 unknown unit, 2 Refill(s), eRx: [facility] [id number], 1 INHALATION Q 12 HOURS Special Instructions: 1 INHALATION Q 12 HOURS Start Date: 08/15/14 Status: Ordered Bactroban 2% topical ointment rudy, Topical, BID, 0 Refill(s) Start Date: 04/18/14 Status: Ordered bd pen ndl shrt 31 G X 8mm (03/11) bharati bd pen ndl shrt 31 G X 8mm (03/11) bharati, See Instructions, SubCutaneous QID, # 100 Each, 3 Refill(s), [id number], SubCutaneous QID Special Instructions: SubCutaneous QID Start [...] # 16 unknown unit, 2 Refill(s), eRx: [facility] [id number], INHALE 1 - 2 SPRAY BY INTRANASAL ROUTE EVERY DAY IN EACH NOSTRIL Special Instructions: INHALE 1 - 2 SPRAY BY INTRANASAL ROUTE EVERY DAY IN EACH NOSTRIL Start Date: 09/01/14 Status: Ordered Lantus 100 units/mL subcutaneous solution 30 units, SubCutaneous, Bedtime (once a day), 0 Refill(s) Start Date: 04/18/14 Status: Ordered Mobic 15 mg oral tablet See Instructions, TAKE 1 TABLET (15MG) BY ORAL ROUTE BID, # 60 unknown unit, 2 Refill(s), eRx: [facility] [id number], TAKE 1 TABLET (15MG) BY ORAL ROUTE BID Special Instructions: TAKE 1 TABLET (15MG) BY ORAL ROUTE BID Start Date: 10/13/14 Status: Ordered [place] 7.5 mg-325 mg oral tablet See Instructions, 1-2 tabs Oral q4hr, # 70 tabs, 0 Refill(s) Special Instructions: 1-2 tabs Oral q4hr Start Date: 11/17/14 Status: Ordered NovoLOG FlexPen 100 units/mL subcutaneous solution See Instructions, INJECT BY SUBCUTANEOUS ROUTE PER INSULIN SLIDING SCALE PROTOCOL, # 30 unknown unit, 2 Refill(s), eRx: [facility] [id number], INJECT BY SUBCUTANEOUS ROUTE PER INSULIN SLIDING SCALE PROTOCOL Special Instructions: INJECT BY SUBCUTANEOUS ROUTE PER INSULIN SLIDING SCALE PROTOCOL Start Date: 08/31/14 Status: Ordered ProAir HFA 90 mcg/inh inhalation aerosol See Instructions, INHALE 2 PUFF(S) BY MOUTH ROUTE 4 TIMES EVERY DAY AND NEEDED, # 8.5 unknown unit, 2 Refill(s), eRx: [facility] [id number], INHALE 2 PUFF(S) BY MOUTH ROUTE 4 [...] # 30 unknown unit, 2 Refill(s), eRx: [facility] [id number], TAKE 1 TABLET ( 20MG) BY ORAL ROUTE EVERY DAY IN THE EVENING Special Instructions: TAKE 1 TABLET (20MG) BY ORAL ROUTE EVERY DAY IN THE EVENING Start Date: 11/10/14 Status: Ordered Results Chemistry Most recent to 1 oldest [Reference Range]: Hgb A1c [4.1-5.6 %] 5.7 % *HI* (11/17/14 3:22 PM) eAvg Glucose 116.9 mg/dL (11/17/14 3:22 PM) Immunizations Vaccine Date Refusal Reason tetanus/diphth/pertuss [...]
--- OUTSIDE RECORDS SUMMARY | 2017-02-12 22:21 | XMS REPORT | Referral Summary ---
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 Discharge Diagnosis: Acute lower UTI Discharge Disposition: Home or Self Care Attending Physician: Wong Cardenas MD Admitting Physician: Wong Cardenas MD Vital Signs Most recent to 1 oldest [Reference Range]: Temperature Tympanic 37.1 degC [36.6-38.1 degC] (12/01/14 10:00 AM) Peripheral Pulse 88 bpm Rate [60-100 bpm] (12/01/14 10:00 AM) Blood Pressure 140/70 mmHg [90-140/60-90 mmHg] (12/01/14 10:00 AM) Problem List Condition Effective Dates Status [...] # 60 unknown unit, 2 Refill(s), eRx: [facility] [id number], 1 INHALATION Q 12 HOURS Special Instructions: 1 INHALATION Q 12 HOURS Start Date: 08/15/14 Status: Ordered Bactroban 2% topical ointment rudy, Topical, BID, 0 Refill(s) Start Date: 04/18/14 Status: Ordered bd pen ndl shrt 31 G X 8mm (03/11) bharati bd pen ndl shrt 31 G X 8mm (03/11) bharati, See Instructions, SubCutaneous QID, # 100 Each, 3 Refill(s), Pharmacy: [facility] [id number], SubCutaneous QID Special Instructions: SubCutaneous QID Start [...] # 16 unknown unit, 2 Refill(s), eRx: [facility] [id number], INHALE 1 - 2 SPRAY BY INTRANASAL ROUTE EVERY DAY IN EACH NOSTRIL Special Instructions: INHALE 1 - 2 SPRAY BY INTRANASAL ROUTE EVERY DAY IN EACH NOSTRIL Start Date: 11/22/14 Status: Ordered Lantus 100 units/mL subcutaneous solution 30 units, SubCutaneous, Bedtime (once a day), 0 Refill(s) Start Date: 04/18/14 Status: Ordered Levaquin 500 mg oral tablet 1 tabs, Oral, q24hr, X 10 days, # 10 tabs, 0 Refill(s), Pharmacy: [facility] [id number], 1 tabs Oral q24hr,x10 days Start Date: 12/01/14 Stop Date: 12/11/14 Status: Ordered Mobic 15 mg oral tablet See Instructions, TAKE 1 TABLET (15MG) BY ORAL ROUTE BID, # 60 unknown unit, 2 Refill(s), eRx: [facility] [id number], TAKE 1 TABLET (15MG) BY ORAL ROUTE BID Special Instructions: TAKE 1 TABLET (15MG) BY ORAL ROUTE BID Start Date: 10/13/14 Status: Ordered [place] 7.5 mg-325 mg oral tablet See Instructions, 1-2 tabs Oral q4hr, # 70 tabs, 0 Refill(s) Special Instructions: 1-2 tabs Oral q4hr Start Date: 11/17/14 Status: Ordered NovoLOG FlexPen 100 units/mL subcutaneous solution See Instructions, INJECT BY SUBCUTANEOUS ROUTE PER INSULIN SLIDING SCALE PROTOCOL, # 30 unknown unit, 2 Refill(s), eRx: [facility] [id number], INJECT BY SUBCUTANEOUS ROUTE PER INSULIN SLIDING SCALE PROTOCOL Special Instructions: INJECT BY SUBCUTANEOUS ROUTE PER INSULIN SLIDING SCALE PROTOCOL Start Date: 08/31/14 Status: Ordered ProAir HFA 90 mcg/inh inhalation aerosol See Instructions, INHALE 2 PUFF(S) BY MOUTH ROUTE 4 TIMES EVERY DAY AND NEEDED, # 8.5 unknown unit, 2 Refill(s), eRx: [facility] [id number], INHALE 2 PUFF(S) BY MOUTH ROUTE 4 [...] # 30 unknown unit, 2 Refill(s), eRx: [facility] [id number], TAKE 1 TABLET ( 20MG) BY ORAL ROUTE EVERY DAY IN THE EVENING Special Instructions: TAKE 1 TABLET (20MG) BY ORAL ROUTE EVERY DAY IN THE EVENING Start Date: 11/10/14 Status: Ordered Results Urinalysis Most recent to 1 oldest [Reference Range]: UA Color Yellow (12/01/14 9:55 AM) UA Appear Sl Cloudy (12/01/14 9:55 AM) UA pH [5.0-8.0] 7.0 (12/01/14 9:55 AM) UA Leuk Est Pos 1+ [Negative] *ABN* (12/01/14 9:55 AM) UA Nitrite Negative [Negative] (12/01/14 9:55 AM) UA Protein Pos 1+ [Negative] *ABN* (12/01/14 9:55 AM) UA Glucose Negative [Negative] (12/01/14 9:55 AM) UA Ketones Negative [Negative] (12/01/14 9:55 AM) UA Urobilinogen 0.2 mg/dL (12/01/14 9:55 AM) UA Bili [Negative] Negative (12/01/14 9:55 AM) UA Blood Negative (12/01/14 9:55 AM) UA Spec Grav 1.020 [1.003-1.030] (12/01/14 9:55 AM) Type Clean Catch (12/01/14 9:55 AM) UA WBC [0-4] 10-20 *ABN* (12/01/14 9:55 AM) Epithelial Cells >50 /HPF *ABN* (12/01/14 9:55 AM) UA Bacteria Occasional *ABN* (12/01/14 9:55 AM) Crystals Amorphous (12/01/14 9:55 AM) UA Yeast Present *ABN* (12/01/14 9:55 AM) UA Mucous Present (12/01/14 9:55 AM) Immunizations Vaccine Date Refusal Reason tetanus/diphth/pertuss [...]
--- OUTSIDE RECORDS SUMMARY | 2017-02-12 22:21 | XMS REPORT | Referral Summary ---
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 Role Phone Dian Cardenas Primary Care Physician [phone] Encounter Date(s): 08/30/15 - 08/30/15 [facility] [address] [address]- Discharge Diagnosis: Emphysema/COPD Discharge Diagnosis: Diabetes Discharge Diagnosis: Well woman exam (no gynecological exam) Discharge Disposition: -Home or Self Care Attending Physician: Wong Cardenas MD Admitting Physician: Wong Cardenas MD Vital Signs Most recent to 1 oldest [Reference Range]: Peripheral Pulse 97 bpm Rate [60-100 bpm] (08/30/15 11:06 AM) Blood Pressure 132/62 mmHg [90-140/60-90 mmHg] (08/30/15 11:06 AM) SpO2 93 % (08/30/15 11:06 AM) Problem List Condition Effective Dates Status [...] # 60 unknown unit, 5 Refill(s), eRx: [id number], 1 INHALATION Q 12 HOURS Start Date: [...] QID, # 100 Each, 3 Refill(s), Pharmacy: [id number], SubCutaneous QID Start Date: 07/07/14 Status: Ordered [...] # 16 unknown unit, 5 Refill(s), eRx: [facility] [id number], INHALE 1 - 2 SPRAY BY INTRANASAL ROUTE EVERY DAY IN EACH NOSTRIL Start Date: 05/17/15 Status: Ordered FreeStyle Lancets See Instructions, USE 1 BY SUBCUTANEOUS ROUTE 3 TIMES EVERY, # 300 unknown unit , 11 Refill(s), eRx: [facility] [id number], USE 1 BY SUBCUTANEOUS ROUTE 3 TIMES EVERY Start Date: 01/16/15 Status: Ordered FreeStyle Lite Strips See Instructions, INJECT 1 BY INTRADERMAL ROUTE 3 TIMES EVERY DAY, # 300 unknown unit, 11 Refill(s), eRx: [facility] , INJECT 1 BY INTRADERMAL ROUTE 3 TIMES EVERY DAY Start Date: 04/24/15 Status: Ordered FreeStyle Lite Strips See Instructions, INJECT 1 BY INTRADERMAL ROUTE 3 TIMES EVERY DAY, # 300 unknown unit, 11 Refill(s), eRx: [facility] , INJECT 1 BY INTRADERMAL ROUTE 3 TIMES EVERY DAY Start Date: 01/16/15 Status: Ordered Lantus Solostar Pen 100 units/mL subcutaneous solution See Instructions, INJECT 30 UNITS BY SUBCUTANEOUS ROUTE AT BEDTIME, # 15 unknown unit, 10 Refill(s), eRx: [facility] , INJECT 30 UNITS BY SUBCUTANEOUS ROUTE AT BEDTIME Start Date: 05/25/15 Status: Ordered Miscellaneous DME DME Item b-d jorge luis pen needles dx 250.00, See Instructions, # 100 Each, 12 Refill(s), Pharmacy: [facility] , b-d jorge luis pen needles; dx 250.00 , Supply Start Date: 05/18/15 Status: Ordered Mobic 15 mg oral tablet See Instructions, TAKE 1 TABLET (15MG) BY ORAL ROUTE BID, # 60 unknown unit, 11 Refill(s), eRx: [facility] , TAKE 1 TABLET (15MG) BY ORAL ROUTE BID Start Date: 01/12/15 Status: Ordered Standish 7.5 mg-325 mg oral tablet See Instructions, 1-2 tabs Oral q4hr, # 70 tabs, 0 Refill(s), Indication: prn pain Start Date: 08/10/15 Status: Ordered NovoLOG FlexPen 100 units/mL subcutaneous solution See Instructions, TAKE 25 U ; BEFORE BREAKFAST, 12-15 U ; BEFORE LUNCH, AND 20 U ; BEFORE DINNER, # 1 boxes, 9 Refill(s), eRx: [facility] , TAKE 25 U ; BEFORE BREAKFAST, 12-15 U ; BEFORE LUNCH, AND 20 U ; BEFORE DINNER Start Date: 03/15/15 Status: Ordered ProAir HFA 90 mcg/inh inhalation aerosol See Instructions, INHALE 2 PUFF(S) BY MOUTH ROUTE 4 TIMES EVERY DAY AND NEEDED, # 8.5 Each, 2 Refill(s), Pharmacy: [facility] [id number] Start Date: 08/24/15 Status: Ordered promethazine-codeine 6.25 [...] # 30 unknown unit, 6 Refill(s), eRx: [facility] [id number], TAKE 1 TABLET ( 20MG) BY ORAL ROUTE EVERY DAY IN THE EVENING Start Date: 06/12/15 Status: Ordered Zocor 20 mg oral tablet See Instructions, TAKE 1 TABLET (20MG) BY ORAL ROUTE EVERY DAY IN THE EVENING, # 30 unknown unit, eRx: [facility] [id number], TAKE 1 TABLET (20MG) BY ORAL ROUTE EVERY DAY IN THE EVENING Start Date: 05/12/15 Status: Ordered Results Chemistry Most recent to 1 oldest [Reference Range]: Hgb A1c [4.1-5.6 %] 6.3 % *HI* (08/30/15 12:18 PM) eAvg Glucose 134.1 mg/dL (08/30/15 12:18 PM) Urinalysis Most recent to 1 oldest [Reference Range]: UA Color Yellow (08/30/15 12:18 PM) UA Appear Clear (08/30/15 12:18 PM) UA pH [5.0-8.0] 7.5 (08/30/15 12:18 PM) UA Leuk Est Negative [Negative] (08/30/15 12:18 PM) UA Nitrite Negative [Negative] (08/30/15 12:18 PM) UA Protein Negative [Negative] (08/30/15 12:18 PM) UA Glucose Negative [Negative] (08/30/15 12:18 PM) UA Ketones Negative [Negative] (08/30/15 12:18 PM) UA Urobilinogen 0.2 mg/dL [<1.0 mg/dL] (08/30/15 12:18 PM) UA Bili [Negative] Negative (08/30/15 12:18 PM) UA Blood [Negative] Negative (08/30/15 12:18 PM) UA Spec Grav 1.013 [1.003-1.030] (08/30/15 12:18 PM) Type Clean Catch (08/30/15 12:18 PM) UA WBC [0-4] 0-2 (08/30/15 12:18 PM) UA RBC [0-4] 0-4 (08/30/15 12:18 PM) Epithelial Cells 2-5 (08/30/15 12:18 PM) Microbiology Reports TEST: Urine Culture STATUS: Order in Progress BODY SITE: SOURCE: Urine, Clean Catch COLLECTED DATE/TIME: 08/30/15 12:18 PM Urine Culture No growth Immunizations Vaccine Date Refusal Reason tetanus/diphth/pertuss (Tdap) adult/adol 01/12/97 influenza virus vaccine, live 09/06/08 Procedures Procedure Date Related Diagnosis Body Site section Tonsillectomy Social History Social History Type Response Smoking Status Current some day smoker; Type: Cigarettes; Tobacco use per day: More than 1 pack; Number of years: 20 Assessment and Plan Extracted from: Title: Ambulatory Patient Education Author: Barbara Davis MA Date: Family Medicine Chronic Obstructive Pulmonary Disease Chronic obstructive pulmonary disease (COPD) is a common lung problem. In COPD, the flow of air from the lungs is limited. The way your lungs work will probably never return to normal, but there are things you can do to improve your lungs and make yourself feel better. HOME CARE Take all medicines as told by your doctor. Avoid medicines or cough syrups that dry up your airway (such as antihistamines) and do not allow you to get rid of thick spit. You do not need to avoid them if told differently by your doctor. If you smoke, stop. Smoking makes the problem worse. Avoid being around things that make your breathing worse (like smoke, chemicals, and fumes). Use oxygen therapy and therapy to help improve your lungs (pulmonary rehabilitation) if told by your doctor. If you need home oxygen therapy, ask your doctor if you should buy a tool to measure your oxygen level (oximeter). Avoid people who have a sickness you can catch (contagious). Avoid going outside when it is very hot, cold, or humid. Eat healthy foods. Eat smaller meals more often. Rest before meals. Stay active, but remember to also rest. Make sure to get all the shots (vaccines) your doctor recommends. Ask your doctor if you need a pneumonia shot. Learn and use tips on how to relax. Learn and use tips on how to control your breathing as told by your doctor. Try: Breathing in (inhaling) through your nose for 1 second. Then, pucker your lips and breath out (exhale) through your lips for 2 seconds. Putting one hand on your belly (abdomen). Breathe in slowly through your nose for 1 second. Your hand on your belly should move out. Pucker your lips and breathe out slowly through your lips. Your hand on your belly should move in as you breathe out. Learn and use controlled coughing to clear thick spit from your lungs. The steps are: 1. Lean your head a little forward. 2. Breathe in deeply. 3. Try to hold your breath for 3 seconds. 4. Keep your mouth slightly open while coughing 2 times. 5. Spit any thick spit out into a tissue. 6. Rest and do the steps again 1 or 2 times as needed. GET HELP IF: You cough up more thick spit than usual. There is a change in the color or thickness of the spit. It is harder to breathe than usual. Your breathing is faster than usual. GET HELP RIGHT AWAY IF: You have shortness of breath while resting. You have shortness of breath that stops you from: Being able to talk. Doing normal activities. You chest hurts for longer than 5 minutes. Your skin color is more blue than usual. Your pulse oximeter shows that you have low oxygen for longer than 5 minutes. MAKE SURE YOU: Understand these instructions. Will watch your condition. Will get help right away if you are not doing well or get worse. Document Released: 03/31/2009 Document Revised: 02/27/2015 Document Reviewed: [facility] Patient Information 2015 [facility]. This information is not intended to replace advice given to you by your health care provider. Make sure you discuss any questions you have with your health care provider. Physical Medicine and Rehabilitation Diabetes and Exercise Diabetes mellitus is a common, chronic disease, in which the pancreas is unable to adequately control blood glucose (sugar) levels. There are 2 types of diabetes. Type 1 diabetes patients are unable to produce insulin, a hormone that causes sugar in the blood to be stored in the body. People with type 1 diabetes may compensate by giving themselves injections of insulin. Type 2 diabetes involves not producing adequate amounts of insulin to control blood glucose levels. People with type 2 diabetes control their blood glucose by monitoring their food intake or by taking medicine. Exercise is an important part of diabetes treatment. During exercise, the muscles use a greater amount of glucose from the blood for energy. This lowers your blood glucose, which is the same effect you would get from taking insulin. It has been shown that endurance athletes are more sensitive to insulin than inactive people. SYMPTOMS Many people with a mild case of diabetes have no symptoms. However, if left uncontrolled, diabetes can lead to several complications that could be prevented with treatment of the disease. General symptoms of diabetes include: Frequent urination (polyuria). Frequent thirst and drinking (polydipsia). Increased food consumption (polyphagia). Fatigue. Poor exercise performance. Blurred vision. Inflammation of the vagina (vaginitis) caused by fungal infections. Skin infections (uncommon). Numbness in the feet, caused by nerve injury. Kidney disease. CAUSES The cause of most cases of diabetes is unknown. In children, diabetes is often due to an autoimmune response to the cells in the pancreas that make insulin. It is also linked with other diseases, such as cystic fibrosis. Diabetes may have a genetic link. PREVENTION Athletes should strive to begin exercise with blood glucose in a well- controlled state. Feet should always be kept clean and dry. Activities in which low blood sugar levels cannot be treated easily (scuba diving, rock climbing, swimming) should be avoided. Anticipate alterations in diet or training to avoid low blood sugar ( hypoglycemia) and high blood sugar (hyperglycemia). Athletes should try to increase sugar consumption after strenuous exercise to avoid hypoglycemia. Short-acting insulin should not be injected into an actively exercising muscle. The athlete should rest the injection site for about 1 hour after exercise. Patients with diabetes should get routine checkups of the feet to prevent complications. PROGNOSIS Exercise provides many benefits to the person with diabetes: Reduced body fat. Lower blood pressure. Often, reduced need for medicines. Improved exercise tolerance. Lower insulin levels. Weight loss. Improved lipid profile (decreased cholesterol and low-density lipoproteins) . RELATED COMPLICATIONS If performed incorrectly, exercise can result in complications of diabetes: Poor control of blood sugar, when exercise is performed at the wrong time. Increase in renal disease, from loss of body fluids (dehydration). Increased risk of nerve injury (neuropathy) when performing exercises that increase foot injury. Increased risk of eye problems when performing activities that involve breath holding or lowering or jarring the head. Increased risk of sudden from exercise in patients with heart disease. Worsening of hypertension with heavy lifting (more than 10 lb/4.5 kg). Altered blood glucose and insulin dose as a result of mild illness that produces loss of appetite. Altered uptake of insulin after injection when insulin injection site is changed. NOTE: Exercise can lower blood glucose effectively, but the effects are short- lasting (no more than a couple of days). Exercise has been shown to improve your sensitivity to insulin. This may alter how your body responds to a given dose of injected insulin. It is important for every patient with diabetes to know how his or her body may react to exercise, and to adjust insulin dosages accordingly. TREATMENT Eat about 1 to 3 hours before exercise. Check blood glucose immediately before and after exercise. Stop exercise if blood glucose is more than 250 mg/dL. Stop exercise if blood glucose is less than 100 mg/dL. Do not exercise within 1 hour of an insulin injection. Be prepared to treat low blood glucose while exercising. Keep some sugar product with you, such as a candy bar. For prolonged exercise, use a sports drink to maintain your glucose level. Replace used-up glucose in the body after exercise. Consume fluids during and after exercise to avoid dehydration. SEEK MEDICAL CARE IF: You have vision changes after a run. You notice a loss of sensation in your feet after exercise. You have increased numbness, tingling, or pins and needles sensations after exercise. You have chest pain during or after exercise. You have a fast, irregular heartbeat (palpitations) during or after exercise. Your exercise tolerance gets worse. You have fainting or dizzy spells for brief periods during or after exercise. Document Released: 10/13/2006 Document Revised: 02/27/2015 Document Reviewed: [employer] Patient Information 2015 [facility], [facility]. This information is not intended to replace advice given to you by your health care provider. Make sure you discuss any questions you have with your health care provider. No follow up information was provided.
--- OUTSIDE RECORDS SUMMARY | 2017-02-12 22:21 | XMS REPORT | Referral Summary ---
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 Phone Dian Cardenas Primary Care Physician [phone] Encounter Date(s): 06/15/15 - 06/15/15 [facility] [address] [address]- Discharge Diagnosis: Chronic obstructive pulmonary disease (COPD) Discharge Diagnosis: Acute bronchitis Discharge Diagnosis: Cough Discharge Disposition: -Home or Self Care Attending Physician: Wong Cardenas MD Admitting Physician: Wong Cardenas MD Vital Signs Most recent to 1 oldest [Reference Range]: Peripheral Pulse 98 bpm Rate [60-100 bpm] (06/15/15 11:16 AM) Blood Pressure 130/60 mmHg [90-140/60-90 mmHg] (06/15/15 11:16 AM) SpO2 93 % (06/15/15 11:16 AM) Problem List Condition Effective Dates Status [...] HOURS, # 60 Each, 5 Refill(s), Pharmacy: [address] [id number] Start Date: 12/01/15 Status: Ordered albuterol CFC free 90 mcg/inh inhalation aerosol 2 puffs, Inhalation, q4hr, # 1 Each, 0 Refill(s), other reason (Rx) Start Date: 06/15/15 Status: Ordered Bactrim DS 800 mg-160 mg oral tablet 1 tabs, Oral, BID, X 10 days, # 20 tabs, 0 Refill(s), Pharmacy: [address] [facility] [id number] Start Date: 12/21/15 Stop Date: 12/31/15 Status: Ordered Bactroban 2% topical ointment rudy, Topical, BID, 0 Refill(s) Start Date: 04/18/14 Status: Ordered bd pen ndl shrt 31 G X 8mm (03/11) bharati bd pen ndl shrt 31 G X 8mm (03/11) bharati, See Instructions, SubCutaneous QID, # 100 Each, 3 Refill(s), Pharmacy: [address] [facility] [id number], SubCutaneous QID Start Date: 07/07/14 Status: Ordered [...] NOSTRIL, # 3 Each, 5 Refill(s), Pharmacy: [address] [facility] [id number] Start Date: 11/06/15 Status: Ordered FreeStyle Lancets See Instructions, USE 1 BY SUBCUTANEOUS ROUTE 3 TIMES EVERY, # 300 unknown unit , 11 Refill(s), eRx: [address] [facility] [id number], USE 1 BY SUBCUTANEOUS ROUTE 3 TIMES EVERY Start Date: 01/16/15 Status: Ordered FreeStyle Lite Strips See Instructions, INJECT 1 BY INTRADERMAL ROUTE 3 TIMES EVERY DAY, # 300 unknown unit, 11 Refill(s), eRx: [facility] , INJECT 1 BY INTRADERMAL ROUTE 3 TIMES EVERY DAY Start Date: 04/24/15 Status: Ordered FreeStyle Lite Strips See Instructions, INJECT 1 BY INTRADERMAL ROUTE 3 TIMES EVERY DAY, # 300 unknown unit, 11 Refill(s), eRx: [facility] , INJECT 1 BY INTRADERMAL ROUTE 3 TIMES EVERY DAY Start Date: 01/16/15 Status: Ordered Lantus Solostar Pen 100 units/mL subcutaneous solution See Instructions, INJECT 30 UNITS BY SUBCUTANEOUS ROUTE AT BEDTIME, # 15 unknown unit, 10 Refill(s), eRx: [address] [facility] , INJECT 30 UNITS BY SUBCUTANEOUS ROUTE AT BEDTIME Start Date: 05/25/15 Status: Ordered Miscellaneous DME DME Item b-d jorge luis pen needles dx 250.00, See Instructions, # 100 Each, 12 Refill(s), Pharmacy: [address] [id number], b-d jorge luis pen needles; dx 250.00 , Supply Start Date: 05/18/15 Status: Ordered Mobic 15 mg oral tablet See Instructions, TAKE 1 TABLET (15MG) BY ORAL ROUTE BID, # 60 unknown unit, 11 Refill(s), eRx: [facility] , TAKE 1 TABLET (15MG) BY ORAL ROUTE BID Start Date: 01/12/15 Status: Ordered Parma 7.5 mg-325 mg oral tablet See Instructions, 1-2 tabs Oral q4hr, # 70 tabs, 0 Refill(s), Indication: prn pain Start Date: 12/01/15 Status: Ordered NovoLOG FlexPen 100 units/mL subcutaneous solution See Instructions, TAKE 25 U ; BEFORE BREAKFAST, 12-15 U ; BEFORE LUNCH, AND 20 U ; BEFORE DINNER, # 15 mL, 9 Refill(s), Pharmacy: [address] [id number], TAKE 25 U ; BEFORE BREAKFAST, 12-15 U ; BEFORE LUNCH, AND 20 U ; BEFORE DINNER Start Date: 11/30/15 Status: Ordered ProAir HFA 90 mcg/inh inhalation aerosol See Instructions, INHALE 2 PUFF(S) BY MOUTH ROUTE 4 TIMES EVERY DAY AND NEEDED, # 8.5 Each, 2 Refill(s), Pharmacy: [email or web address] [id number] Start Date: 08/24/15 Status: Ordered promethazine-codeine 6.25 [...] EVENING, # 30 Each, 6 Refill(s), Pharmacy: [address] [id number], TAKE 1 TABLET ( 20MG) BY ORAL [...] Visit Note Author: Wong Cardenas MD Date: 06/15/15 Assessment/Plan 1.Cough she will have her take 10 days more of 10 mg prednisone/day she will continue her inhalers and follow up if symptoms worsen.She has completed course of antibiotics Orders: albuterol, 2 puffs, Inhalation, q4hr, # 1 Each, 0 Refill(s), other reason (Rx) fluticasone-salmeterol, 1 puffs, Inhalation, BID, # 28 Each, 0 Refill(s), other reason (Rx) predniSONE, 10 mg 1 tabs, Oral, Daily, X 10 days, # 10 tabs, 0 Refill(s), Pharmacy: [facility] [id number], 1 tabs Oral Daily,x10 days
--- OUTSIDE RECORDS SUMMARY | 2017-02-12 22:22 | XMS REPORT | Referral Summary ---
Author Author [facility] Organization [facility] Address Unknown Phone Unavailable Care Team Providers Care Manager Solution Name Role Phone Dian Cardenas Primary Care Physician [phone] Encounter Date(s): 06/08/15 - 06/08/15 [facility] [address] [address]- Discharge Diagnosis: Cough Discharge Diagnosis: Shortness of breath Discharge Diagnosis: Acute bronchitis with bronchospasm Discharge Disposition: 01-Home or Self Care Attending Physician: Wong Cardenas MD Admitting Physician: Wong Cardenas MD Vital Signs Most recent to 1 oldest [Reference Range]: Peripheral Pulse 101 bpm Rate [60-100 bpm] *HI* (06/08/15 10:11 AM) Blood Pressure 160/80 mmHg [90-140/60-90 mmHg] *HI* (06/08/15 10:11 AM) SpO2 91 % (06/08/15 10:11 AM) Problem List Condition Effective Dates Status [...] HOURS, # 60 Each, 5 Refill(s), Pharmacy: [facility] [id number] Start Date: 12/01/15 Status: Ordered albuterol CFC [...] QID, # 100 Each, 3 Refill(s), Pharmacy: [facility], SubCutaneous QID Start Date: 07/07/14 Status: Ordered [...] NOSTRIL, # 3 Each, 5 Refill(s), Pharmacy: [facility] [id number] Start Date: 11/06/15 Status: Ordered FreeStyle Lancets See Instructions, USE 1 BY SUBCUTANEOUS ROUTE 3 TIMES EVERY, # 300 unknown unit , 11 Refill(s), eRx: [facility] , USE 1 BY SUBCUTANEOUS ROUTE 3 TIMES EVERY Start Date: 01/16/15 Status: Ordered FreeStyle Lite Strips See Instructions, INJECT 1 BY INTRADERMAL ROUTE 3 TIMES EVERY DAY, # 300 unknown unit, 11 Refill(s), eRx: [facility] , INJECT 1 BY INTRADERMAL ROUTE 3 TIMES EVERY DAY Start Date: 04/24/15 Status: Ordered FreeStyle Lite Strips See Instructions, INJECT 1 BY INTRADERMAL ROUTE 3 TIMES EVERY DAY, # 300 unknown unit, 11 Refill(s), eRx: [facility] , INJECT 1 BY INTRADERMAL ROUTE 3 TIMES EVERY DAY Start Date: 01/16/15 Status: Ordered Lantus Solostar Pen 100 units/mL subcutaneous solution See Instructions, INJECT 30 UNITS BY SUBCUTANEOUS ROUTE AT BEDTIME, # 15 unknown unit, 10 Refill(s), eRx: [facility] , INJECT 30 UNITS BY SUBCUTANEOUS ROUTE AT BEDTIME Start Date: 05/25/15 Status: Ordered Levaquin 500 mg oral tablet See Instructions, 1 TABS ORAL Q24HR,X10 DAYS, # 10 unknown unit, eRx: [facility] , 1 TABS ORAL Q24HR,X10 DAYS Start Date: 11/20/15 Status: Ordered Miscellaneous DME DME Item b-d jorge luis pen needles dx 250.00, See Instructions, # 100 Each, 12 Refill(s), Pharmacy: [facility] [id number], b-d jorge luis pen needles; dx 250.00 , Supply Start Date: 05/18/15 Status: Ordered Mobic 15 mg oral tablet See Instructions, TAKE 1 TABLET (15MG) BY ORAL ROUTE BID, # 60 unknown unit, 11 Refill(s), eRx: [facility] , TAKE 1 TABLET (15MG) BY ORAL ROUTE BID Start Date: 01/12/15 Status: Ordered Addison 7.5 mg-325 mg oral tablet See Instructions, 1-2 tabs Oral q4hr, # 70 tabs, 0 Refill(s), Indication: prn pain Start Date: 12/01/15 Status: Ordered NovoLOG FlexPen 100 units/mL subcutaneous solution See Instructions, TAKE 25 U ; BEFORE BREAKFAST, 12-15 U ; BEFORE LUNCH, AND 20 U ; BEFORE DINNER, # 15 mL, 9 Refill(s), Pharmacy: [facility] [id number], TAKE 25 U ; BEFORE BREAKFAST, 12-15 U ; BEFORE LUNCH, AND 20 U ; BEFORE DINNER Start Date: 11/30/15 Status: Ordered ProAir HFA 90 mcg/inh inhalation aerosol See Instructions, INHALE 2 PUFF(S) BY MOUTH ROUTE 4 TIMES EVERY DAY AND NEEDED, # 8.5 Each, 2 Refill(s), Pharmacy: [facility] [id number] Start Date: 08/24/15 Status: Ordered promethazine-codeine 6.25 [...] THE EVENING, # 30 unknown unit, eRx: [facility] [id number], TAKE 1 TABLET (20MG) BY ORAL ROUTE EVERY DAY IN THE EVENING Start Date: 05/12/15 Status: Ordered Zocor 20 mg oral tablet See Instructions, TAKE 1 TABLET (20MG) BY ORAL ROUTE EVERY DAY IN THE EVENING, # 30 Each, 6 Refill(s), Pharmacy: [facility] [id number], TAKE 1 TABLET ( 20MG) BY ORAL [...] Visit Note Author: Wong Cardenas MD Date: 06/08/15 Assessment/Plan 1.Cough we will treat her with antibiotics and steriods 2.Shortness of breath we gave her a nebulizer treatment today with albuterol with some relief Orders: levofloxacin, 500 mg 1 tabs, Oral, q24hr, X 10 days, # 10 tabs, 0 Refill(s), Pharmacy: [facility] [id number], 1 tabs Oral q24hr,x10 days predniSONE, 20 mg 1 tabs, Oral, Daily, X 10 days, # 10 tabs, 0 Refill(s), Pharmacy: [facility] [id number], 1 tabs Oral Daily,x10 days
--- OUTSIDE RECORDS SUMMARY | 2017-02-12 22:22 | XMS REPORT | Referral Summary ---
Author Author [facility] Organization [facility] Address Unknown Phone Unavailable Care Team Providers Care Habilitation Specialist Name Role Phone Dian Cardenas Primary Care Physician [phone] Encounter VC Date(s): 05/16/15 - 05/16/15 [facility]itt[facility] E [address] [address]- [place] Discharge Diagnosis: Chest pressure Discharge Diagnosis: Glands swollen Discharge Diagnosis: Parotitis Discharge Disposition: 01-Home or Self Care Attending Physician: Wong Cardenas MD Admitting Physician: Wong Cardenas MD Vital Signs Most recent to 1 oldest [Reference Range]: Temperature Oral 37.6 degC [35.8-37.3 degC] *HI* (05/16/15 11:00 AM) Peripheral Pulse 92 bpm Rate [60-100 bpm] (05/16/15 11:00 AM) Blood Pressure 130/68 mmHg [90-140/60-90 mmHg] (05/16/15 11:00 AM) SpO2 91 % (05/16/15 11:00 AM) Problem List Condition Effective Dates Status [...] # 60 unknown unit, 5 Refill(s), eRx: [facility] [id number], 1 INHALATION Q 12 HOURS Start Date: [...] QID, # 100 Each, 3 Refill(s), Pharmacy: [facility] [id number], SubCutaneous QID Start Date: 07/07/14 Status: Ordered [...] NOSTRIL, # 3 Each, 5 Refill(s), Pharmacy: [facility] [id number] Start Date: 11/06/15 Status: Ordered FreeStyle Lancets See Instructions, USE 1 BY SUBCUTANEOUS ROUTE 3 TIMES EVERY, # 300 unknown unit , 11 Refill(s), eRx: [facility] [id number], USE 1 BY SUBCUTANEOUS ROUTE 3 TIMES EVERY Start Date: 01/16/15 Status: Ordered FreeStyle Lite Strips See Instructions, INJECT 1 BY INTRADERMAL ROUTE 3 TIMES EVERY DAY, # 300 unknown unit, 11 Refill(s), eRx: [facility] [id number], INJECT 1 BY INTRADERMAL ROUTE 3 TIMES EVERY DAY Start Date: 04/24/15 Status: Ordered FreeStyle Lite Strips See Instructions, INJECT 1 BY INTRADERMAL ROUTE 3 TIMES EVERY DAY, # 300 unknown unit, 11 Refill(s), eRx: [facility] [id number], INJECT 1 BY INTRADERMAL ROUTE 3 TIMES EVERY DAY Start Date: 01/16/15 Status: Ordered Lantus Solostar Pen 100 units/mL subcutaneous solution See Instructions, INJECT 30 UNITS BY SUBCUTANEOUS ROUTE AT BEDTIME, # 15 unknown unit, 10 Refill(s), eRx: [facility] [id number], INJECT 30 UNITS BY SUBCUTANEOUS ROUTE AT BEDTIME Start Date: 05/25/15 Status: Ordered Levaquin 500 mg oral tablet See Instructions, 1 TABS ORAL Q24HR,X10 DAYS, # 10 unknown unit, eRx: [facility] [id number], 1 TABS ORAL Q24HR,X10 DAYS Start Date: 11/20/15 Status: Ordered Miscellaneous DME DME Item b-d jorge luis pen needles dx 250.00, See Instructions, # 100 Each, 12 Refill(s), Pharmacy: [facility] [id number], b-d jorge luis pen needles; dx 250.00 , Supply Start Date: 05/18/15 Status: Ordered Mobic 15 mg oral tablet See Instructions, TAKE 1 TABLET (15MG) BY ORAL ROUTE BID, # 60 unknown unit, 11 Refill(s), eRx: [facility] [id number], TAKE 1 TABLET (15MG) BY ORAL ROUTE BID Start Date: 01/12/15 Status: Ordered [place] 7.5 mg-325 mg oral tablet See Instructions, 1-2 tabs Oral q4hr, # 70 tabs, 0 Refill(s), Indication: prn pain Start Date: 11/17/15 Status: Ordered NovoLOG FlexPen 100 units/mL subcutaneous solution See Instructions, TAKE 25 U ; BEFORE BREAKFAST, 12-15 U ; BEFORE LUNCH, AND 20 U ; BEFORE DINNER, # 1 boxes, 9 Refill(s), eRx: [facility] [id number], TAKE 25 U ; BEFORE BREAKFAST, 12-15 U ; BEFORE LUNCH, AND 20 U ; BEFORE DINNER Start Date: 03/15/15 Status: Ordered ProAir HFA 90 mcg/inh inhalation aerosol See Instructions, INHALE 2 PUFF(S) BY MOUTH ROUTE 4 TIMES EVERY DAY AND NEEDED, # 8.5 Each, 2 Refill(s), Pharmacy: [facility] [id number] Start Date: 08/24/15 Status: Ordered promethazine-codeine 6.25 [...] # 30 unknown unit, 6 Refill(s), eRx: [facility] [id number], TAKE 1 TABLET ( 20MG) BY ORAL ROUTE EVERY DAY IN THE EVENING Start Date: 06/12/15 Status: Ordered Zocor 20 mg oral tablet See Instructions, TAKE 1 TABLET (20MG) BY ORAL ROUTE EVERY DAY IN THE EVENING, # 30 unknown unit, eRx: [facility] [id number], TAKE 1 TABLET (20MG) BY ORAL ROUTE [...] Visit Note Author: Wong Cardenas MD Date: 05/16/15 Assessment/Plan 1.Glands swollen salivary glands swollen, parotid glands improved :she will take another round of doxycycline she will follow up in 2 weeks if no improvement 2.Chest pressure Ordered: EKG with Interpretation [id number] Orders: doxycycline, 100 mg 1 caps, Oral, BID, X 14 days, # 28 caps, 0 Refill( s), Pharmacy: [facility] [id number], 1 caps Oral BID,x14 days
--- OUTSIDE RECORDS SUMMARY | 2017-02-12 22:22 | XMS REPORT | Continuity of Care Document ---
Author Author [facility] Address Unknown Phone Unavailable Care Team Providers Care Director Of Solutions Architecture Name Role Phone Wong Cardenas PP Unavailable Payers Payer name Insurance type Covered constitution party ID Authorization(s) Unknown Problems Condition Effective Dates (start - stop) Clinical Status Diabetes Mellitus Type 2, Uncomplicated - *Chronic Cervicalgia - *Acute Pain in thoracic spine - *Acute Pain in joint involving pelvic region and thigh - *Acute Unspecified cellulitis and abscess of toe - *Chronic Dermatophytosis of nail - *Chronic Dermatophytosis of nail - *Chronic Pain in limb - *Chronic Pain in joint involving ankle [...] route every bedtime 1 MG - Active Advair Diskus 250 mcg-50 mcg/dose powder for inhalation 1 INHALATION q 12 hours - Active fluticasone 50 mcg/actuation nasal spray,suspension [...] use 1 TID as directed - Active minocycline 100 mg capsule take 1 capsule (100MG) by oral route every day as needed 100 MG - Active [place] 7.5 mg-325 mg tablet take 1 - 2 Tablet by oral route every 4 hours as needed for pain 0 - Active promethazine-codeine 6.25 mg-10 mg/5 [...] Height Weight Pulse Rate Blood Pressure Temperature /09:06:00 66.00 in 207.60 lbs 84 /min 136/78 mm[Hg] Procedures Procedure Date Unknown Encounters Encounter Location Date Patient Visit [facility] [place] Patient Visit [facility] [place] Patient [facility] [place] [facility] [place] [facility] [place] [facility] [place] [facility] [place] Patient [facility] [place] [facility] [place] [facility] [place] [facility] [place] [facility] [place] [facility] [place] [facility] [place] [facility] [place] Patient [facility] [place] [facility] [place] [facility] [place] [facility] [place] [facility] [place] Patient [facility] [place] Patient [facility] [place] [facility] [place] [facility] [place] [facility] [place] Patient Visit [facility] [place] Patient [facility] [place] Patient [facility] [place] [facility] [place] Patient [facility] [place] [facility] [place] [facility] [place] [facility] [place] [facility] [place] Patient [facility] [place] [facility] [place] Patient Visit [facility] Patient Visit [facility] [place] [facility] [place] [facility] [place] Patient [facility] [place] [facility] [place] [facility] [place] [facility] [place] [facility] [place] [facility] [place] [facility] [place] Patient [facility] [place] [facility] [place] [facility] [place] [facility] [place] [facility] [place] [facility] [place] [facility] [place] [facility] [place] Patient Visit [facility] [place] Advance Directives Directive Effective Date Unknown
--- OUTSIDE RECORDS SUMMARY | 2017-02-12 22:22 | XMS REPORT | Referral Summary ---
Author Author [facility] Organization [facility] Address Unknown Phone Unavailable Care Team Providers Care Floor Coverings Salesperson Name Role Phone Dian Cardenas Primary Care Physician [phone] Encounter VC Date(s): 04/03/15 - 04/03/15 [facility] Whittaker E [address] [address]- Discharge Diagnosis: Well controlled type 2 diabetes mellitus Discharge Diagnosis: Acute bronchitis Discharge Disposition: 01-Home or Self Care Attending Physician: Wong Cardenas MD Admitting Physician: Wong Cardenas MD Vital Signs Most recent to 1 oldest [Reference Range]: Temperature Tympanic 37 degC [36.6-38.1 degC] (04/03/15 10:22 AM) Peripheral Pulse 98 bpm Rate [60-100 bpm] (04/03/15 10:22 AM) Blood Pressure 120/60 mmHg [90-140/60-90 mmHg] (04/03/15 10:22 AM) SpO2 92 % (04/03/15 10:22 AM) Problem List Condition Effective Dates Status [...] # 60 unknown unit, 5 Refill(s), eRx: [facility] [id number], 1 INHALATION Q 12 HOURS Start Date: [...] QID, # 100 Each, 3 Refill(s), Pharmacy: [facility] [id number], SubCutaneous QID Start Date: 07/07/14 Status: Ordered [...] # 16 unknown unit, 5 Refill(s), eRx: [facility] [id number], INHALE 1 - 2 SPRAY BY INTRANASAL ROUTE EVERY DAY IN EACH NOSTRIL Start Date: 05/17/15 Status: Ordered FreeStyle Lancets See Instructions, USE 1 BY SUBCUTANEOUS ROUTE 3 TIMES EVERY, # 300 unknown unit , 11 Refill(s), eRx: [facility] [id number], USE 1 BY SUBCUTANEOUS ROUTE 3 TIMES EVERY Start Date: 01/16/15 Status: Ordered FreeStyle Lite Strips See Instructions, INJECT 1 BY INTRADERMAL ROUTE 3 TIMES EVERY DAY, # 300 unknown unit, 11 Refill(s), eRx: [facility] , INJECT 1 BY INTRADERMAL ROUTE 3 TIMES EVERY DAY Start Date: 04/24/15 Status: Ordered FreeStyle Lite Strips See Instructions, INJECT 1 BY INTRADERMAL ROUTE 3 TIMES EVERY DAY, # 300 unknown unit, 11 Refill(s), eRx: [facility] , INJECT 1 BY INTRADERMAL ROUTE 3 TIMES EVERY DAY Start Date: 01/16/15 Status: Ordered Lantus Solostar Pen 100 units/mL subcutaneous solution See Instructions, INJECT 30 UNITS BY SUBCUTANEOUS ROUTE AT BEDTIME, # 15 unknown unit, 10 Refill(s), eRx: [facility] , INJECT 30 UNITS BY SUBCUTANEOUS ROUTE AT BEDTIME Start Date: 05/25/15 Status: Ordered Miscellaneous DME DME Item b-d jorge luis pen needles dx 250.00, See Instructions, # 100 Each, 12 Refill(s), Pharmacy: [facility] [id number], b-d jorge luis pen needles; dx 250.00 , Supply Start Date: 05/18/15 Status: Ordered Mobic 15 mg oral tablet See Instructions, TAKE 1 TABLET (15MG) BY ORAL ROUTE BID, # 60 unknown unit, 11 Refill(s), eRx: [facility] , TAKE 1 TABLET (15MG) BY ORAL ROUTE BID Start Date: 01/12/15 Status: Ordered [place] 7.5 mg-325 mg oral tablet See Instructions, 1-2 tabs Oral q4hr, # 70 tabs, 0 Refill(s), Indication: prn pain Start Date: 09/28/15 Status: Ordered NovoLOG FlexPen 100 units/mL subcutaneous solution See Instructions, TAKE 25 U ; BEFORE BREAKFAST, 12-15 U ; BEFORE LUNCH, AND 20 U ; BEFORE DINNER, # 1 boxes, 9 Refill(s), eRx: [facility] [id number], TAKE 25 U ; BEFORE BREAKFAST, 12-15 U ; BEFORE LUNCH, AND 20 U ; BEFORE DINNER Start Date: 03/15/15 Status: Ordered ProAir HFA 90 mcg/inh inhalation aerosol See Instructions, INHALE 2 PUFF(S) BY MOUTH ROUTE 4 TIMES EVERY DAY AND NEEDED, # 8.5 Each, 2 Refill(s), Pharmacy: [facility] [id number] Start Date: 08/24/15 Status: Ordered promethazine-codeine 6.25 [...] # 30 unknown unit, 6 Refill(s), eRx: [facility] [id number], TAKE 1 TABLET ( 20MG) BY ORAL ROUTE EVERY DAY IN THE EVENING Start Date: 06/12/15 Status: Ordered Zocor 20 mg oral tablet See Instructions, TAKE 1 TABLET (20MG) BY ORAL ROUTE EVERY DAY IN THE EVENING, # 30 unknown unit, eRx: [facility] [id number], TAKE 1 TABLET (20MG) BY ORAL ROUTE EVERY DAY IN THE EVENING Start Date: 05/12/15 Status: Ordered Results Chemistry Most recent to 1 oldest [Reference Range]: Sodium Lvl [135-144 143 mEq/L mEq/L] (04/03/15 10:49 AM) Potassium Lvl 4.5 mEq/L [3.5-5.2 mEq/L] (04/03/15 10:49 AM) Chloride [99-111 105 mEq/L mEq/L] (04/03/15 10:49 AM) CO2 [22-31 mEq/L] 27 mEq/L (04/03/15 10:49 AM) AGAP [3-20] 11 (04/03/15 10:49 AM) BUN [10-20 mg/dL] 14 mg/dL (04/03/15 10:49 AM) Glucose Lvl [70-99 167 mg/dL mg/dL] *HI* (04/03/15 10:49 AM) Creatinine Lvl 0.72 mg/dL [0.57-1.11 mg/dL] (04/03/15 10:49 AM) eGFR [>60 mL/min] >60 mL/min 1 (04/03/15 10:49 AM) Calcium Lvl 10.0 mg/dL [8.9-10.5 mg/dL] (04/03/15 10:49 AM) Albumin Lvl [3.4-4.8 4.1 gm/dL gm/dL] (04/03/15 10:49 AM) Total Protein 6.4 gm/dL [6.2-8.1 gm/dL] (04/03/15 10:49 AM) Globulin [1.8-4.0 2.3 gm/dL gm/dL] (04/03/15 10:49 AM) ALT [0-55 U/L] 14 U/L (04/03/15 10:49 AM) AST [5-34 U/L] 12 U/L (04/03/15 10:49 AM) Alk Phos [40-150 45 U/L U/L] (04/03/15 10:49 AM) Bili Total [0.2-1.2 0.3 mg/dL mg/dL] (04/03/15 10:49 AM) Hgb A1c [4.1-5.6 %] 6.2 % *HI* (04/03/15 10:49 AM) eAvg Glucose 131.2 mg/dL (04/03/15 10:49 AM) 1Result Comment: Multiply eGFR results by 1.21 for race. Urinalysis Most recent to 1 oldest [Reference Range]: UA WBC [0-4] 2-4 (04/03/15 10:47 AM) UA RBC [0-4] 0-4 (04/03/15 10:47 AM) Epithelial Cells 10-20 (04/03/15 10:47 AM) Other Information See Below 1 (04/03/15 10:47 AM) 1Result Comment: Urine specimen volume is 3.0 mls. Microscopic performed on less than the standard 12 ml specimen. Immunizations Vaccine Date Refusal Reason tetanus/diphth/pertuss (Tdap) adult/adol 01/12/97 influenza virus vaccine, live 09/06/08 Procedures Procedure Date Related Diagnosis Body Site section Tonsillectomy Social History Social History Type Response Smoking Status Current some day smoker; Type: Cigarettes; Tobacco use per day: More than 1 pack; Number of years: 20 Assessment and Plan Extracted from: Title: Ambulatory Patient Education Author: Wong Cardenas MD Date: 04/04 Family Medicine Acute Bronchitis Bronchitis is inflammation of the airways that extend from the windpipe into the lungs (bronchi ). The inflammation often causes mucus to develop. This leads to a cough, which is the most common symptom of bronchitis. In acute bronchitis, the condition usually develops suddenly and goes away over time, usually in a couple weeks. Smoking, allergies, and asthma can make bronchitis worse. Repeated episodes of bronchitis may cause further lung problems. CAUSES Acute bronchitis is most often caused by the same virus that causes a cold. The virus can spread from person to person (contagious ). SIGNS AND SYMPTOMS Cough. Fever. Coughing up mucus. Body aches. Chest congestion. Chills. Shortness of breath. Sore throat. DIAGNOSIS Acute bronchitis is usually diagnosed through a physical exam. Tests, such as chest X-rays, are sometimes done to rule out other conditions. TREATMENT Acute bronchitis usually goes away in a couple weeks. Often times, no medical treatment is necessary. Medicines are sometimes given for relief of fever or cough. Antibiotics are usually not needed but may be prescribed in certain situations. In some cases, an inhaler may be recommended to help reduce shortness of breath and control the cough. A cool mist vaporizer may also be used to help thin bronchial secretions and make it easier to clear the chest. HOME CARE INSTRUCTIONS Get plenty of rest. Drink enough fluids to keep your urine clear or pale yellow (unless you have a medical condition that requires fluid restriction). Increasing fluids may help thin your secretions and will prevent dehydration. Only take uizi-[id number] or prescription medicines as directed by your health care provider. Avoid smoking and secondhand smoke. Exposure to cigarette smoke or irritating chemicals will make bronchitis worse. If you are a smoker, consider using nicotine gum or skin patches to help control withdrawal symptoms. Quitting smoking will help your lungs heal faster. Reduce the chances of another bout of acute bronchitis by washing your hands frequently, avoiding people with cold symptoms, and trying not to touch your hands to your mouth, nose, or eyes. Follow up with your health care provider as directed. SEEK MEDICAL CARE IF: Your symptoms do not improve after 1 week of treatment. SEEK IMMEDIATE MEDICAL CARE IF: You develop an increased fever or chills. You have chest pain. You have severe shortness of breath. You have bloody sputum. You develop dehydration. You develop fainting. You develop repeated vomiting. You develop a severe headache. MAKE SURE YOU: Understand these instructions. Will watch your condition. Will get help right away if you are not doing well or get worse. Document Released: 11/20/2005 Document Revised: 06/15/2014 Document Reviewed: [facility] Patient Information 2014 [employer] [facility]. No follow up information was provided. Extracted from: Title: Office Visit Note Author: Wong Cardenas MD Date: 04/04/15 Assessment/Plan Acute bronchitis Ordered: Office Visit Level 3 Est 20766 Well controlled type 2 diabetes mellitus Ordered: Office Visit Level 3 Est 63968 Orders: sulfamethoxazole-trimethoprim, 1 tabs, Oral, BID, X 14 days, # 28 tabs , 0 Refill(s), [facility] [id number]
--- OUTSIDE RECORDS SUMMARY | 2017-02-12 22:22 | XMS REPORT | Referral Summary ---
Author Author [facility] Organization [facility] Address Unknown Phone Unavailable Care Team Providers Care Bench Manager Name Role Phone Dian Cardenas Primary Care Physician [phone] Encounter VC Date(s): 08/06/16 - 08/06/16 [facility] [address] [place] [id number] Discharge Disposition: 01-Home or Self Care Attending Physician: Wong Cardenas MD Vital Signs Most recent to 1 oldest [Reference Range]: Peripheral Pulse 95 bpm Rate [60-100 bpm] (08/06/16 9:45 AM) Blood Pressure 140/64 mmHg [90-140/60-90 mmHg] (08/06/16 9:45 AM) SpO2 92 % (08/06/16 9:45 AM) Problem List Condition Effective Dates Status [...] 250 mcg-50 mcg inhalation powder See Instructions, INHALE 1 DOSE INTO LUNGS EVERY 12 HOURS, # 60 g, eRx: [facility] [id number], INHALE 1 DOSE INTO LUNGS EVERY 12 HOURS Start Date: 07/30/16 Status: Ordered B-D PEN NDL JORGE LUIS [id number]() GRN See Instructions, USE DIRECTED, # 100 unknown unit, eRx: [facility] [id number], USE DIRECTED Start Date: 06/27/16 Status: Ordered Bactroban 2% topical ointment rudy, Topical, BID, 0 Refill(s) Start Date: 04/18/14 Status: Ordered clonazePAM 0.5 mg oral tablet 0.5 tabs, 2 tabs, Oral, Bedtime (once a day), 0 Refill(s) Start Date: 04/18/14 Status: Ordered clotrimazole-betamethasone 1%-0.05% topical cream See Instructions, APPLY TOPICALLY TO AFFECTED SKIN TWICE DAILY, # 45 g, eRx: [facility] [id number], APPLY TOPICALLY TO AFFECTED SKIN TWICE DAILY [...] NOSTRIL, # 3 Each, 5 Refill(s), Pharmacy: [facility] [id number] Start Date: 11/06/15 Status: Ordered FREESTYLE LANCETS 100 See Instructions, TEST BLOOD SUGARS THREE TIMES DAILY, # 300 unknown unit, eRx: [facility] [id number], TEST BLOOD SUGARS THREE TIMES DAILY Start Date: 07/22/16 Status: Ordered FREESTYLE LANCETS 100'S See Instructions, TEST BLOOD SUGARS THREE TIMES DAILY, # 300 unknown unit, eRx: [facility] [id number], TEST BLOOD SUGARS THREE TIMES DAILY Start Date: 04/24/16 Status: Ordered Glucometer Lancets (DME) DME Item freestyle lancets test tid, See Instructions, # 300 Each, 0 Refill(s), Pharmacy: [facility] [id number], freestyle lancets test tid, Supply Start Date: 01/24/16 Status: Ordered Lantus Solostar Pen 100 units/mL subcutaneous solution See Instructions, INJECT 35 UNITS BY SUBCUTANEOUS ROUTE AT BEDTIME, # 15 unknown unit, 10 Refill(s), eRx: [facility] [id number], INJECT 30 UNITS BY SUBCUTANEOUS ROUTE AT BEDTIME Start Date: 05/25/15 Status: Ordered Levaquin 500 mg oral tablet 500 mg 1 tabs, Oral, q24hr, X 10 days, # 10 tabs, 0 Refill(s), Pharmacy: [facility] [id number], 1 tabs Oral q24hr,x10 days Start Date: 08/06/16 Stop Date: 08/16/16 Status: Ordered meloxicam 15 mg oral tablet See Instructions, TAKE 1 TABLET(15 MG) BY MOUTH TWICE DAILY, # 60 tabs, eRx: [facility] [id number], TAKE 1 TABLET(15 MG) BY MOUTH TWICE DAILY Start Date: 07/15/16 Status: Ordered Miscellaneous DME DME Item b-d jorge luis pen needles dx 250.00, See Instructions, # 100 Each, 12 Refill(s), Pharmacy: [facility] [address], b-d jorge luis pen needles; dx 250.00 , Supply Start Date: 05/18/15 Status: Ordered Edenton 7.5 mg-325 mg oral tablet 1 tabs, Oral, QID, as needed for pain, to be filled on or after 07/19/16, # 120 tabs, 0 Refill(s), Indication: prn pain Start Date: 07/16/16 Status: Ordered NovoLOG FlexPen 100 units/mL subcutaneous solution See Instructions, TAKE 25 U ; BEFORE BREAKFAST, 12-15 U ; BEFORE LUNCH, AND 20 U ; BEFORE DINNER, # 15 mL, 9 Refill(s), Pharmacy: [facility] [id number], TAKE 25 U ; BEFORE BREAKFAST, 12-15 U ; BEFORE LUNCH, AND 20 U ; BEFORE DINNER Start Date: 11/30/15 Status: Ordered predniSONE 20 mg oral tablet 20 mg 1 tabs, Oral, Daily, X 7 days, # 7 tabs, 0 Refill(s), Pharmacy: [facility] [address], 1 tabs Oral Daily,x7 days Start Date: 08/06/16 Stop Date: 08/13/16 Status: Ordered ProAir HFA 90 mcg/inh inhalation aerosol See Instructions, INHALE 2 PUFFS BY MOUTH FOUR TIMES DAILY NEEDED, # 8.5 g, eRx: [facility] [id number], INHALE 2 PUFFS BY MOUTH FOUR TIMES DAILY NEEDED Start Date: 07/15/16 Status: Ordered simvastatin 20 mg oral tablet See Instructions, TAKE 1 TABLET BY MOUTH EVERY DAY IN THE EVENING, # 30 tabs, eRx: [facility] [id number], TAKE 1 TABLET BY MOUTH EVERY DAY IN THE EVENING Start Date: 07/15/16 Status: Ordered Spiriva 18 mcg inhalation capsule See Instructions, INHALE THE CONTENTS OF 1 CAPSULE VIA INHALATION DEVICE DAILY, # 30 caps, eRx: [facility] [id number], INHALE THE CONTENTS OF 1 CAPSULE VIA INHALATION DEVICE DAILY Start Date: 08/05/16 Status: Ordered sulfamethoxazole-trimethoprim 800 mg-160 mg oral tablet See Instructions, TAKE 1 TABLET BY MOUTH DAILY, # 30 tabs, eRx: [facility] [address], TAKE 1 TABLET BY MOUTH DAILY Start Date: 07/16/16 Status: Ordered testing strips testing strips, See Instructions, Freestyle insulin X testing strips testing three times a day Dx E 11.9, # 100 Each, 11 Refill(s), Pharmacy: [facility] [id number], Freestyle insulin X testing strips testing three times a day ; Dx E 11.9 Start Date: 04/16/16 Status: Ordered traMADol 50 mg oral tablet 50 mg 1 tabs, Oral, TID, prn pain, # 90 tabs, 0 Refill(s) Start Date: 05/27/16 Status: Ordered Results No data available for [...] Patient Education Author: Barbara Davis MA Date: 08/06 Family Medicine Diabetes and Standards of Medical Care Diabetes is complicated. You may find that your diabetes team includes a dietitian, nurse, state manager, eye doctor, and more. To help everyone know what is going on and to help you get the care you deserve, the following schedule of care was developed to help keep you on track. Below are the tests, exams, vaccines, medicines, education, and plans you will need. HbA1c test This test shows how well you have controlled your glucose over the past 23 months. It is used to see if your diabetes management plan needs to be adjusted. It is performed at least 2 times a year if you are meeting treatment goals. It is performed 4 times a year if therapy has changed or if you are not meeting treatment goals. Blood pressure test This test is performed at every routine medical visit. The goal is less than 140/90 mm Hg for most people, but 130/80 mm Hg in some cases. Ask your health care provider about your goal. Dental exam Follow up with the dentist regularly. Eye exam If you are diagnosed with type 1 diabetes as a child, get an exam upon reaching the age of 10 years or older and having had diabetes for 35 years. Yearly eye exams are recommended after that initial eye exam. If you are diagnosed with type 1 diabetes as an adult, get an exam within 5 years of diagnosis and then yearly. If you are diagnosed with type 2 diabetes, get an exam as soon as possible after the diagnosis and then yearly. Foot care exam Visual foot exams are performed at every routine medical visit. The exams check for cuts, injuries, or other problems with the feet. You should have a complete foot exam performed every year. This exam includes an inspection of the structure and skin of your feet, a check of the pulses in your feet, and a check of the sensation in your feet. Type 1 diabetes: The first exam is performed 5 years after diagnosis. Type 2 diabetes: The first exam is performed at the time of diagnosis. Check your feet nightly for cuts, injuries, or other problems with your feet. Tell your health care provider if anything is not healing. Kidney function test (urine microalbumin) This test is performed once a year. Type 1 diabetes: The first test is performed 5 years after diagnosis. Type 2 diabetes: The first test is performed at the time of diagnosis. A serum creatinine and estimated glomerular filtration rate (eGFR) test is done once a year to assess the level of chronic kidney disease (CKD), if present. Lipid profile (cholesterol, HDL, LDL, triglycerides) Performed every 5 years for most people. The goal for LDL is less than 100 mg/dL. If you are at high risk, the goal is less than 70 mg/dL. The goal for HDL is 40 mg/dL50 mg/dL for men and 50 mg/dL60 mg/dL for women. An HDL cholesterol of 60 mg/dL or higher gives some protection against heart disease. The goal for triglycerides is less than 150 mg/dL. Immunizations The flu (influenza) vaccine is recommended yearly for every person 6 months of age or older who has diabetes. The pneumonia (pneumococcal) vaccine is recommended for every person 2 years of age or older who has diabetes. Adults 65 years of age or older may receive the pneumonia vaccine as a series of two separate shots. The hepatitis B vaccine is recommended for adults shortly after they have been diagnosed with diabetes. The Tdap (tetanus, diphtheria, and pertussis) vaccine should be given: According to normal childhood vaccination schedules, for children. Every 10 years, for adults who have diabetes. Diabetes self-management education Education is recommended at diagnosis and ongoing as needed. Treatment plan Your treatment plan is reviewed at every medical visit. This information is not intended to replace advice given to you by your health care provider. Make sure you discuss any questions you have with your health care provider. Document Released: 08/10/2010 Document Revised: 11/03/2015 Document Reviewed: Exit[employer] Patient Information 2016 [employer] [facility]. No follow up information was provided. Extracted from: Title: Cough Author: Wong Cardenas MD Date: 08/06/16 Impression and Plan Diagnosis Asthma without status asthmaticus (disorder) (IUW88-AI J45.909, Working, Medical ). Diabetes (HKZ34-JK E11.9, Working, Medical). Frequent urination (FLG88-OQ R35.0, Working, Medical). Obesity (WYQ93-NW E66.9, Working, Patient Stated). Plan: Will check pt urine for infection today. Pt scripts for prednisone and levaquin ERXD to pt pharmacy.. Patient Instructions: Diabetes and Standards of Medical Care. Orders Orders (Selected) Outpatient Orders Ordered Office Visit Level 3 Est 77575: Ordered (Pending Collection) UA Macroscopic Only: UA Microscopic Only: Urine Culture: Prescriptions Prescribed Levaquin 500 mg oral tablet: 500 mg=1 tabs, Oral, q24hr, for 10 days, 10 tabs, 0 Refill(s) predniSONE 20 mg oral tablet: 20 mg=1 tabs, Oral, Daily, for 7 days, 7 tabs, 0 Refill(s).
--- OUTSIDE RECORDS SUMMARY | 2017-02-12 22:25 | XMS REPORT | Continuity of Care Document ---
Author Author [facility] Organization [facility] Address Unknown Phone Unavailable Allergies Medications Problems Procedures Results Encounters ACCT No. Visit Date/Time Discharge Status Pt. Type Provider Facility Loc./Unit Complaint [id number] 12/20/2013 14:28:00 12/20/2013 23 :59:59 CLS Outpatient [id number] 11/16/2013 08:58:00 11/16/2013 23 :59:59 CLS Outpatient [id number] 09/20/2013 09:06:00 09/20/2013 23 :59:59 CLS Outpatient [id number] 08/16/2013 09:35:00 08/16/2013 23 :59:59 CLS Outpatient
[2017-02-12] MEDS ORDERED: DEXAMETHASONE 4mg/ml - 1ml INJECTION IM ONE (22:30)
[2017-02-12] MEDS ORDERED: ALBUTEROL/IPRATROPIUM INHAL. 2.5mg-0.5mg/3ml Neb. AEROSOL ONE (22:30)
--- NOTE | 2017-02-12 22:37 | ERPDOC ---
Departure Disposition Decision Date: Feb 12, 2017 Disposition Decision Time: 23:39 Disposition: 01 DISCHARGED HOME, SELF-CARE Impression Impression Impression: Primary Impression: COPD exacerbation Severity: Severe Condition: Improved Seen By: Physician only Referrals: LUDIVINA WILCOX (Family) Patient Instructions: COPD (Chronic Obstructive Pulmonary Disease) (ED) Problems/Meds/Labs Reviewed?: Yes Medications reviewed and manag: Yes Additional Instructions: Use your breathing treatments at home daily, up to every 4-6 hours as needed Take Mucinex daily to thin mucus Drink at least for glasses of fluid daily Follow up care ordered?: Yes Mental Status: Alert HPI - Dyspnea General Chief Complaint: Dyspnea/Respdistress Stated Complaint: DIFF BREATHING Time Seen by Provider: 22:19 Source: patient, EMS Exam Limitations: no limitations HPI - Dyspnea Initial Comments Patient called EMS from her home with complaints of severe dyspnea associated with thick mucus production and cough. Patient has severe chronic but stable COPD with persistent oxygen therapy at home at 4 L nasal cannula. Also is a heavy smoker, despite her COPD has continued to smoke. Patient had a coughing spell tonight that resulted from a thick mucous plug, and is feeling much better currently. However the patient does state that she has been having worsening shortness of breath for the past several days, but has not seen her primary physician. Patient was last on steroids one week ago, and last use Mucinex one week ago. Patient was seen for the same symptoms 2 weeks ago at [facility], but came to [facility] for the first time tonight because EMS was already headed this direction when she was loaded onto the ambulance. Occurred At: home Onset/Timing: Rapid Duration: 1-3 hrs Severity: moderate Activities at Onset: rest Prior Episodes/Possible Cause: chronic episodes Modifying Factors: WORSE WITH: coughing Associated Symptoms: cough, shortness of breath, DENIES: chest pain, diaphoresis, fever/chills, headaches, loss of appetite, malaise, nausea/vomiting , rash, seizure, syncope, weakness Aspirin Treatment Today: unknown Hx of Similar Symptoms: Yes Allergies: Coded Allergies: Penicillins (Verified Allergy, Unknown, 02/12/17) amoxicillin (Verified Allergy, Unknown, 02/12/17) clavulanic acid (Verified Allergy, Unknown, 02/12/17) Past History Patient Medical History Problem List Updates: Morbid obesity Tobacco abuse Past Medical History Metabolic: diabetes, hypercholesterolemia Respiratory: COPD Musculoskeletal: back pain, osteoarthritis Psychological: anxiety, depression Surgical History Denies Surgeries Social History Smoking Status: Current every day smoker Does patient use chewing tobac: No Second Hand Exposure: No Substance Use Type: does not use Alcohol Intake: none Record Review Pertinent history updated: Yes Review of Systems Constitutional Constitutional: DENIES: appetite decrease, appetite increase, chills, dizziness , fever, weakness ENMT Ears: DENIES: pain Hearing: DENIES: hearing loss, tinnitus Balance: DENIES: vertigo Mouth/Throat: DENIES: change in swallowing, change in voice, hoarsness, painful swallowing, sore throat Cardiovascular Cardiac: DENIES: chest pain, dyspnea on exertion Rhythm/Rate: DENIES: irregular beat, palpitations, tachycardia Vascular: DENIES: pedal edema Pulmonary Respiratory: cough, dyspnea, pneumonia hx (2015), sputum, DENIES: exposure to TB, hyperventilation, last PPD, pleuritic chest pain, recent risky activities, tachypnea GI Upper Abdomen: DENIES: dysphagia, heartburn/indigestion, nausea, pain, vomiting Lower Abdomen: DENIES: blood in stool, constipation, diarrhea, pain General: DENIES: burning, dysuria, frequency, pain, urgency Musculoskeletal General: DENIES: cramps, joint pain, joint swelling, pain, weakness Integumentary Skin: DENIES: rash, sores Physical Exam General General Nourishment: well nourished, well developed, appears stated age, no acute distress General Body Habitus: well groomed Vitals and Pain First Documented Vital Signs Date Time Temp Pulse Resp B/P Pulse Ox O2 Delivery O2 Flow Rate FiO2 02/12/17 22:16 98.6 80 24 150/71 95 Nasal Cannula 4.00 Weight: Kilograms: 105.500 Height (feet): 5 Height (inches): 4.00 Triage Pain Scale: RN VS reviewed by Provider: Yes Normal Exams: Head: Normocephalic w/o trauma Eyes: Pupils are PERRLA w/ EOMI, No scleral icterus, irritation, or foreign bodies noted ENMT: No facial trauma, nasal exudates, pharyngeal erythema, or exudates are noted Neck: Full range of motion, without adenopathy, JVD, bruits or thyromegaly Abdomen: Bowel sounds positive, soft, non-tender, non-distended, no hepatosplenomegaly, masses or bruits noted Lymphatic: No lymphadenopathy, or lymphedema noted Musculoskeletal: No tenderness, or deformity noted, good range of motion, all extremities Integumentary: No rashes, hives, or bruising noted, hair and nails, without abnormality Neurologic: Patient is alert, and oriented, cranial nerves, motor/sensory/ cerebellar, exams w/o gross deficits, to observation Psychiatric: Patient exhibits, appropriate attention, emotion and affect Respiratory (brief) Respiratory: FOUND: equal bilaterally, symmetrical, wheezes, NOT FOUND: clear all arzate (course rhonchi and wheezes bilaterally, good air movement), rales, tenderness Cardiovascular (brief) Cardiac: FOUND: regular rate, regular rhythm, NOT FOUND: pedal edema Capillary Refill: <2 sec Pulses: all distal extremities, equal, strong Progress Results/Orders Orders Procedure Category Date Status Time Chest, Pa & Lateral RAD 02/12/17 Taken Albuterol/Ipratropium PHA 02/12/17 Complete (Duoneb) 22:30 Dexamethasone Inj PHA 02/12/17 Complete (Decadron) 22:45 Medications Current ED Medications Albuterol/ Ipratropium (Duoneb) 6 ml O ONCE AEROSOL ; Start 02/12/17 at 22:30; Stop 02/12/17 at 22:31; Status DC Dexamethasone Sodium Phosphate (Decadron) 8 mg O ONCE IM ; Start 02/12/17 at 22 :30; Stop 02/12/17 at 22:31; Status Cancel Dexamethasone Sodium Phosphate (Decadron) 8 mg O ONCE IV Last administered on 02/12/17t 22:50; Start 02/12/17 at 22:45; Stop 02/12/17 at 22:46; Status DC Progress Progress Chest x-ray - mild cardio megaly, chronic appearing infiltrative lung disease, no acute consolidations or seen Patient given dexamethasone 8 mg IV, 2 DuoNeb treatments - to AUGIE Espinoza MD Feb 12, 2017 22:37
[2017-02-12] MEDS ORDERED: DEXAMETHASONE 4mg/ml - 1ml INJECTION IV ONE (22:45)
[2017-02-12] MEDS ORDERED: ALBU2.5V7 (23:15)
[2017-02-12] MEDS ORDERED: FLUT1DIS3 INH (23:15)
[2017-02-12] MEDS ORDERED: TRAM50TA4 PO (23:15)
[2017-02-12] MEDS ORDERED: FLUT16SP INH (23:15)
[2017-02-12] MEDS ORDERED: CLON0.5T4 PO (23:15)
[2017-02-12] MEDS ORDERED: IPRA0.2S52 INH (23:15)
[2017-02-12] MEDS ORDERED: ALBU8.5H (23:15)
[2017-02-12] MEDS ORDERED: SIMV20TA6 PO (23:15)
[2017-02-12] MEDS ORDERED: OSEL75CA18 (23:15)
[2017-02-12] MEDS ORDERED: ADVAIR INH (23:15)
[2017-02-12] MEDS ORDERED: BUPR100T13 PO (23:15)
[2017-02-12] MEDS ORDERED: AZEL137S11 (23:15)
[2017-02-12] MEDS ORDERED: [UNRECOGNIZED DRUG - OTHER] (23:15)
[2017-02-12] MEDS ORDERED: HYDR-4072 PO (23:15)
[2017-02-12] MEDS ORDERED: INSU100I3 SQ ×2 (23:15→23:37)
[2017-02-12] MEDS ORDERED: TRAZ300T2 PO (23:15)
[2017-02-12] MEDS ORDERED: MELO-267 PO (23:15)
[2017-02-12] MEDS ORDERED: LORA10TA7 PO (23:42)
[2017-02-13 00:01] VITALS: BP 146/66; PULSE 74; RESP 24; TEMP 98.6; O2SAT 92
--- NOTE | 2017-02-13 00:01 | NUR ---
DEPART PT IS SLEEPING IN BED, IS BARELY ABLE TO STAY AWAKE. DISCHARGE INSTRUCTIONS ARE REVIEWED AND UNDERSTANDING IS VOICED BY PT AND MALE IN THE ROOM WITH HER AND UNDERSTANDING IS VOICED. PT IS SWITCHED TO PORTABLE O2 TANK, USES BR IN ROOM AND IS TAKEN BY WHEELCHAIR TO PRIVATE VEHICLE.
--- NOTE | 2017-02-13 08:01 | DI ---
INDICATION: ITS.REASON: COPD exacerbation with rhochi/dyspnea PROCEDURE: CHEST 2-VIEWS UPRIGHT (PA \T\ LAT) Encounter: Initial COMPARISON: None FINDINGS: The lungs are clear without evidence of focal abnormal airspace opacity. There is no pleural effusion or pneumothorax. Cardiac silhouette is mildly enlarged. Large hiatal hernia with a partially intrathoracic stomach. IMPRESSION: No pneumonia. Large hiatal hernia with a partially intrathoracic stomach. .
== END 2017-02-13 00:01 | disposition home or self-care (01) ==
LOC: ED 22:16
DX: J44.1 Chronic obstructive pulmonary disease with (acute) exacerbation (principal); F17.200 Nicotine dependence, unspecified, uncomplicated; Z99.81 Dependence on supplemental oxygen
CPT/HCPCS: 71020; 94640; 96374; 99284; J1100